=== PATIENT | male | born 1960 | race Two or more races ===

== ENCOUNTER 2023-10-20 22:07 | Inpatient (IN) | payer MEDICARE, OTHER ==
[~2023-10-20] VITALS: Ht 177.8 cm; Wt 84.8 kg
[2023-10-21 00:25] LABS: BASOPHILS # (AUTO) 0.1 K/uL (0.0-0.2); BASOPHILS % (AUTO) 0.8 % (0.0-2.0); EOSINOPHILS # (AUTO) 0.3 K/uL (0.0-0.7); EOSINOPHILS % (AUTO) 2.2 % (0.0-6.0); HEMATOCRIT 29 % (39-51); HEMOGLOBIN 9.5 g/dL (13.5-17.5); LYMPHOCYTES # (AUTO) 2.9 K/uL (0.8-4.8); LYMPHOCYTES % (AUTO) 22.9 % (20.0-44.0); MEAN CORPUSCULAR HEMOGLOBIN 29 PG (26.0-33.0); MEAN CORPUSCULAR HGB CONC 33 g/dl (31.0-36.0); MEAN CORPUSCULAR VOLUME 88 fL (80-96); MONOCYTES # (AUTO) 0.7 K/uL (0.1-1.30); MONOCYTES % (AUTO) 5.6 % (2.0-12.0); NEUTROPHILS # (AUTO) 8.6 K/uL (1.8-8.9); NEUTROPHILS % (AUTO) 68.5 % (43.0-81.0); PLATELET COUNT (AUTO) 599 K/uL (150-450); RED BLOOD CELL COUNT(AUTO) 3.27 MIL/uL (4.5-6.0); RED CELL DISTRIBUTION WIDTH 15.6 % (11.5-15.0); WHITE BLOOD COUNT (AUTO) 12.6 K/uL (4.3-11.0)
[2023-10-21 00:31] LABS: CALCIUM, SERUM 9.1 mg/dL (8.5-10.1); CARBON DIOXIDE 20 mmol/L (21-32); CHLORIDE 108 mmol/L (98-107); CREATININE 1.4 mg/dL (0.6-1.3); GLUCOSE 148 mg/dL (74-106); POTASSIUM 3.8 mmol/L (3.5-5.1); SERUM AMMONIA 41 umol/L (11-32); SODIUM SERUM 139 mmol/L (136-145); UREA NITROGEN, BLOOD 32 mg/dL (7-18)
[2023-10-21 00:37] LABS: ALANINE AMINOTRANSFERASE 18 U/L (12-78); ALCOHOL, BLOOD < 3 mg/dL (0-10); ALKALINE PHOSPHATASE 242 U/L (46-116); ASPARTATE AMINOTRANSFERASE 20 U/L (15-37); BILIRUBIN,DIRECT 0.1 mg/dL (0.0-0.2); BILIRUBIN,TOTAL 0.2 mg/dL (0.2-1.0); SALICYLATE 3.5 mg/dL (2.8-20.0); TOTAL PROTEIN, SERUM 6.9 g/dL (6.4-8.2)
[2023-10-21] MEDS ORDERED: CEFEPIME 1 GM VIAL ONE (00:40)
[2023-10-21 00:44] LABS: INR 1.01 (0.91-1.10); PARTIAL THROMBOPLASTIN TIME 30.4 SEC (24.3-34.3); PROTHROMBIN TIME 10.7 SECS (9.2-11.1)
[2023-10-21 00:45] LABS: ACETAMINOPHEN <10 ug/ml (10-30); THYROID STIMULATING HORMONE 3.858 uIU/mL (0.358-3.74)
[2023-10-21] MEDS ORDERED: CEFEPIME 2 GM in IV D5W 50 ML IV ONE (01:00)
[2023-10-21] MEDS ORDERED: VANCOMYCIN 1 GM in IV D5W 250 ML IV ONE (01:00)
[2023-10-21] MEDS ORDERED: IV NS 0.9% 1,000 ML BAG IV ONE (01:00)
[2023-10-21] MEDS ORDERED: VANCOMYCIN 1 GM /D5W 250 ML PB IV ONE (01:23)
[2023-10-21] MEDS ORDERED: Z GUARD REMEDY 4 OZ OINT TP PRN (02:30)
[2023-10-21] MEDS ORDERED: MAGNESIUM HYDROXIDE 30 ML UDC PO PRN (02:30)
[2023-10-21] MEDS ORDERED: MAG HYDROX/AL HYDROX/SIMETH 30 ML UDC PO PRN (02:30)
[2023-10-21] MEDS ORDERED: ONDANSETRON HCL/PF 4 MG/2 ML VIAL IVP PRN (02:30)
[2023-10-21] MEDS ORDERED: ACETAMINOPHEN 325 MG TABLET PO PRN (02:30)
[2023-10-21] MEDS ORDERED: PANTOPRAZOLE 40 MG VIAL IV SCH (09:00)
[2023-10-21] MEDS ORDERED: OXYC15TA2 PO (09:47)
[2023-10-21] MEDS: HYDROCODONE/APAP 5/325MG TABLET PO PRN (10:21)
[2023-10-21] MEDS ORDERED: VANCOMYCIN 0.75 GM in IV D5W 250 ML IV SCH (12:00)
[2023-10-21] MEDS: MUPIROCIN OINT 2% 22 GM TUBE TP SCH ×2 (12:10→21:38)
[2023-10-21] MEDS: CEFEPIME 2 GM in IV D5W 100 ML IV SCH (12:34)
[2023-10-21] MEDS: PREGABALIN 100 MG CAPSULE PO SCH ×2 (12:35→16:10)
[2023-10-21] MEDS: LINEZOLID 600 MG TABLET PO SCH (16:10)
[2023-10-21] MEDS: oxyCODONE IR immediate release 5 MG PO PRN (20:24)
[2023-10-22] MEDS: CEFEPIME 2 GM in IV D5W 100 ML IV SCH ×2 (01:43→12:44)
[2023-10-22] MEDS: oxyCODONE IR immediate release 5 MG PO PRN ×3 (02:38→18:36)
[2023-10-22 06:26] LABS: BASOPHILS % (AUTO) 0.7 % (0.0-2.0); EOSINOPHILS # (AUTO) 0.2 K/uL (0.0-0.7); EOSINOPHILS % (AUTO) 3.2 % (0.0-6.0); HEMATOCRIT 24 % (39-51); HEMOGLOBIN 8.4 g/dL (13.5-17.5); LYMPHOCYTES # (AUTO) 0.8 K/uL (0.8-4.8); LYMPHOCYTES % (AUTO) 13.7 % (20.0-44.0); MEAN CORPUSCULAR HEMOGLOBIN 31 PG (26.0-33.0); MEAN CORPUSCULAR HGB CONC 35 g/dl (31.0-36.0); MEAN CORPUSCULAR VOLUME 89 fL (80-96); MONOCYTES # (AUTO) 0.4 K/uL (0.1-1.30); MONOCYTES % (AUTO) 7.3 % (2.0-12.0); NEUTROPHILS # (AUTO) 4.5 K/uL (1.8-8.9); NEUTROPHILS % (AUTO) 75.1 % (43.0-81.0); PLATELET COUNT (AUTO) 370 K/uL (150-450); RED BLOOD CELL COUNT(AUTO) 2.66 MIL/uL (4.5-6.0); RED CELL DISTRIBUTION WIDTH 16.3 % (11.5-15.0)
[2023-10-22 07:02] LABS: CALCIUM, SERUM 8.1 mg/dL (8.5-10.1); MAGNESIUM 1.6 mg/dL (1.8-2.4); PHOSPHORUS 2.3 mg/dL (2.5-4.9); POTASSIUM 3.5 mmol/L (3.5-5.1)
[2023-10-22] MEDS: INSULIN REGULAR, HUMAN 100 UNIT/ML 3 ML VIAL SQ PRN ×2 (08:21→10:06)
[2023-10-22] MEDS ORDERED: DEXTROSE 50%-WATER 50 ML DISP.SYRIN IV PRN (08:30)
[2023-10-22] MEDS: PREGABALIN 100 MG CAPSULE PO SCH ×3 (09:07→16:26)
[2023-10-22] MEDS: PANTOPRAZOLE 40 MG TABLET.DR PO SCH (09:07)
[2023-10-22] MEDS: LINEZOLID 600 MG TABLET PO SCH ×2 (09:08→16:26)
[2023-10-22] MEDS: BLOOD SUGAR DIAGNOSTIC 1 EACH STRIP IN SCH ×4 (09:13→21:11)
[2023-10-22] MEDS: DAKINS QUARTER STRENGTH (0.125%) 480 ML BOTTLE TOP SCH (09:58)
[2023-10-22] MEDS ORDERED: MAGNESIUM OXIDE 400 MG TABLET PO ONE (10:00)
[2023-10-22] MEDS ORDERED: INSULIN GLARGINE, 100 UNIT/ML CARTRIDGE SQ ONE (10:00)
[2023-10-22] MEDS ORDERED: INSULIN REGULAR, HUMAN 100 UNIT/ML 10 ML VIAL SQ ONE (10:00)
[2023-10-22] MEDS: MUPIROCIN OINT 2% 22 GM TUBE TP SCH ×2 (10:49→21:50)
[2023-10-22] MEDS ORDERED: K PHOS NEUTRAL 250 MG TABLET PO ONE (16:00)
[2023-10-22 20:00] VITALS: BP 123/76; TEMP 98.1; O2SAT 99
[2023-10-22] MEDS: *INSULIN REGULAR(HUMULIN R)HUM 100 UNIT/ML VIAL SQ PRN (21:16)
[2023-10-22] MEDS: INSULIN GLARGINE, 100 UNIT/ML CARTRIDGE SQ SCH (21:17)
[2023-10-23] MEDS: oxyCODONE IR immediate release 5 MG PO PRN ×4 (00:40→22:32)
[2023-10-23 04:00] VITALS: BP 122/78; TEMP 97.6; O2SAT 99
[2023-10-23 07:27] LABS: BASOPHILS % (AUTO) 0.7 % (0.0-2.0); EOSINOPHILS # (AUTO) 0.3 K/uL (0.0-0.7); EOSINOPHILS % (AUTO) 4.6 % (0.0-6.0); HEMATOCRIT 24 % (39-51); HEMOGLOBIN 8.3 g/dL (13.5-17.5); LYMPHOCYTES # (AUTO) 1.5 K/uL (0.8-4.8); LYMPHOCYTES % (AUTO) 26.3 % (20.0-44.0); MEAN CORPUSCULAR HEMOGLOBIN 30 PG (26.0-33.0); MEAN CORPUSCULAR HGB CONC 34 g/dl (31.0-36.0); MEAN CORPUSCULAR VOLUME 88 fL (80-96); MONOCYTES # (AUTO) 0.5 K/uL (0.1-1.30); MONOCYTES % (AUTO) 8.6 % (2.0-12.0); NEUTROPHILS # (AUTO) 3.5 K/uL (1.8-8.9); NEUTROPHILS % (AUTO) 59.8 % (43.0-81.0); PLATELET COUNT (AUTO) 376 K/uL (150-450); RED BLOOD CELL COUNT(AUTO) 2.74 MIL/uL (4.5-6.0); RED CELL DISTRIBUTION WIDTH 15.8 % (11.5-15.0); WHITE BLOOD COUNT (AUTO) 5.9 K/uL (4.3-11.0)
[2023-10-23 08:00] VITALS: BP 115/76; TEMP 97.9; O2SAT 98
[2023-10-23 08:01] LABS: CALCIUM, SERUM 8.3 mg/dL (8.5-10.1); CREATININE 0.7 mg/dL (0.6-1.3); MAGNESIUM 1.6 mg/dL (1.8-2.4); PHOSPHORUS 2.7 mg/dL (2.5-4.9); POTASSIUM 3.3 mmol/L (3.5-5.1)
[2023-10-23] MEDS: INSULIN REGULAR, HUMAN 100 UNIT/ML 3 ML VIAL SQ PRN ×3 (08:10→17:45)
[2023-10-23] MEDS: BLOOD SUGAR DIAGNOSTIC 1 EACH STRIP IN SCH ×4 (08:11→21:52)
[2023-10-23] MEDS ORDERED: MAGNESIUM OXIDE 400 MG TABLET PO ONE (10:00)
[2023-10-23] MEDS ORDERED: POTASSIUM CHLORIDE 20 MEQ TAB.PRT.SR PO SCH (10:30)
[2023-10-23] MEDS: DAKINS QUARTER STRENGTH (0.125%) 480 ML BOTTLE TOP SCH (10:31)
[2023-10-23] MEDS: LINEZOLID 600 MG TABLET PO SCH ×2 (10:35→17:43)
[2023-10-23] MEDS: PANTOPRAZOLE 40 MG TABLET.DR PO SCH (10:35)
[2023-10-23] MEDS: PREGABALIN 100 MG CAPSULE PO SCH ×3 (10:35→17:43)
[2023-10-23] MEDS: MUPIROCIN OINT 2% 22 GM TUBE TP SCH ×2 (10:41→21:59)
[2023-10-23] MEDS: CEFEPIME 2 GM in IV D5W 100 ML IV SCH ×3 (12:41)
[2023-10-23 16:00] VITALS: BP 125/63; TEMP 97.5; O2SAT 99
[2023-10-23 20:00] VITALS: BP 108/67; TEMP 98.2; O2SAT 99
[2023-10-23] MEDS: *INSULIN REGULAR(HUMULIN R)HUM 100 UNIT/ML VIAL SQ PRN (21:55)
[2023-10-23] MEDS: INSULIN GLARGINE, 100 UNIT/ML CARTRIDGE SQ SCH (21:59)
[2023-10-23] MEDS: ZOLPIDEM TARTRATE 5 MG TABLET PO PRN (22:32)
[2023-10-24] MEDS: CEFEPIME 2 GM in IV D5W 100 ML IV SCH ×2 (01:51→12:31)
[2023-10-24 04:00] VITALS: BP 124/66; TEMP 97.8; O2SAT 100
[2023-10-24] MEDS: oxyCODONE IR immediate release 5 MG PO PRN ×3 (05:27→17:55)
[2023-10-24 06:18] LABS: BASOPHILS % (AUTO) 0.7 % (0.0-2.0); EOSINOPHILS # (AUTO) 0.3 K/uL (0.0-0.7); EOSINOPHILS % (AUTO) 4.8 % (0.0-6.0); HEMATOCRIT 24 % (39-51); HEMOGLOBIN 8.1 g/dL (13.5-17.5); LYMPHOCYTES # (AUTO) 1.7 K/uL (0.8-4.8); LYMPHOCYTES % (AUTO) 29.9 % (20.0-44.0); MEAN CORPUSCULAR HEMOGLOBIN 30 PG (26.0-33.0); MEAN CORPUSCULAR HGB CONC 34 g/dl (31.0-36.0); MEAN CORPUSCULAR VOLUME 89 fL (80-96); MONOCYTES # (AUTO) 0.6 K/uL (0.1-1.30); MONOCYTES % (AUTO) 9.8 % (2.0-12.0); NEUTROPHILS # (AUTO) 3.2 K/uL (1.8-8.9); NEUTROPHILS % (AUTO) 54.8 % (43.0-81.0); PLATELET COUNT (AUTO) 385 K/uL (150-450); RED CELL DISTRIBUTION WIDTH 16.3 % (11.5-15.0); WHITE BLOOD COUNT (AUTO) 5.8 K/uL (4.3-11.0)
[2023-10-24 06:44] LABS: CALCIUM, SERUM 8.5 mg/dL (8.5-10.1); CREATININE 0.9 mg/dL (0.6-1.3); MAGNESIUM 1.6 mg/dL (1.8-2.4); PHOSPHORUS 2.6 mg/dL (2.5-4.9); POTASSIUM 3.7 mmol/L (3.5-5.1)
[2023-10-24 08:00] VITALS: BP 122/79; TEMP 97.8; O2SAT 100
[2023-10-24] MEDS: INSULIN REGULAR, HUMAN 100 UNIT/ML 3 ML VIAL SQ PRN ×2 (08:10→12:04)
[2023-10-24] MEDS: BLOOD SUGAR DIAGNOSTIC 1 EACH STRIP IN SCH ×4 (08:38→21:42)
[2023-10-24] MEDS: PREGABALIN 100 MG CAPSULE PO SCH ×3 (09:04→17:09)
[2023-10-24] MEDS: PANTOPRAZOLE 40 MG TABLET.DR PO SCH (09:04)
[2023-10-24] MEDS: LINEZOLID 600 MG TABLET PO SCH ×2 (09:04→17:09)
[2023-10-24] MEDS: DAKINS QUARTER STRENGTH (0.125%) 480 ML BOTTLE TOP SCH (09:05)
[2023-10-24] MEDS ORDERED: MAGNESIUM OXIDE 400 MG TABLET PO ONE (10:00)
[2023-10-24] MEDS: MUPIROCIN OINT 2% 22 GM TUBE TP SCH ×2 (11:09→22:30)
[2023-10-24 16:00] VITALS: BP 128/76; TEMP 97.7; O2SAT 100
[2023-10-24 20:00] VITALS: BP 124/76; TEMP 98.4; O2SAT 98
[2023-10-24] MEDS ORDERED: IV D5/ 0.9% NACL 1,000 ML IV ONE (20:00)
[2023-10-24] MEDS: *INSULIN REGULAR(HUMULIN R)HUM 100 UNIT/ML VIAL SQ PRN (21:49)
[2023-10-24] MEDS: INSULIN GLARGINE, 100 UNIT/ML CARTRIDGE SQ SCH (21:51)
[2023-10-25] MEDS: HYDROCODONE/APAP 5/325MG TABLET PO PRN (00:14)
[2023-10-25] MEDS: ZOLPIDEM TARTRATE 5 MG TABLET PO PRN (00:14)
[2023-10-25] MEDS: oxyCODONE IR immediate release 5 MG PO PRN ×4 (00:33→20:07)
[2023-10-25] MEDS: CEFEPIME 2 GM in IV D5W 100 ML IV SCH ×2 (00:33→13:30)
[2023-10-25 04:00] VITALS: BP 128/72; TEMP 97.8; O2SAT 99
[2023-10-25 07:04] LABS: BASOPHILS % (AUTO) 0.6 % (0.0-2.0); EOSINOPHILS # (AUTO) 0.3 K/uL (0.0-0.7); EOSINOPHILS % (AUTO) 4.7 % (0.0-6.0); HEMATOCRIT 25 % (39-51); HEMOGLOBIN 8.5 g/dL (13.5-17.5); LYMPHOCYTES # (AUTO) 1.5 K/uL (0.8-4.8); LYMPHOCYTES % (AUTO) 25.1 % (20.0-44.0); MEAN CORPUSCULAR HEMOGLOBIN 30 PG (26.0-33.0); MEAN CORPUSCULAR HGB CONC 34 g/dl (31.0-36.0); MEAN CORPUSCULAR VOLUME 89 fL (80-96); MONOCYTES # (AUTO) 0.6 K/uL (0.1-1.30); NEUTROPHILS # (AUTO) 3.7 K/uL (1.8-8.9); NEUTROPHILS % (AUTO) 60.6 % (43.0-81.0); PLATELET COUNT (AUTO) 407 K/uL (150-450); RED BLOOD CELL COUNT(AUTO) 2.85 MIL/uL (4.5-6.0); RED CELL DISTRIBUTION WIDTH 16.1 % (11.5-15.0); WHITE BLOOD COUNT (AUTO) 6.2 K/uL (4.3-11.0)
[2023-10-25 07:27] LABS: CALCIUM, SERUM 8.6 mg/dL (8.5-10.1); CREATININE 1.1 mg/dL (0.6-1.3); MAGNESIUM 1.7 mg/dL (1.8-2.4); PHOSPHORUS 3.1 mg/dL (2.5-4.9); POTASSIUM 3.9 mmol/L (3.5-5.1)
[2023-10-25] MEDS: INSULIN REGULAR, HUMAN 100 UNIT/ML 3 ML VIAL SQ PRN ×2 (07:58→18:00)
[2023-10-25 08:00] VITALS: BP 124/64; TEMP 98.2; O2SAT 98
[2023-10-25] MEDS: BLOOD SUGAR DIAGNOSTIC 1 EACH STRIP IN SCH ×4 (08:01→22:56)
[2023-10-25] MEDS: PANTOPRAZOLE 40 MG TABLET.DR PO SCH (09:00)
[2023-10-25] MEDS: PREGABALIN 100 MG CAPSULE PO SCH ×3 (09:00→17:16)
[2023-10-25] MEDS: LINEZOLID 600 MG TABLET PO SCH ×2 (09:20→17:16)
[2023-10-25] MEDS: DAKINS QUARTER STRENGTH (0.125%) 480 ML BOTTLE TOP SCH (09:21)
[2023-10-25] MEDS: MUPIROCIN OINT 2% 22 GM TUBE TP SCH ×2 (10:30→22:14)
[2023-10-25] MEDS ORDERED: IOHEXOL-350 100 ML VIAL IV ONE (11:18)
[2023-10-25] MEDS ORDERED: CT SWABBABLE VALVE TRANS SET 1 EA INFUS.SET MC ONE (11:18)
[2023-10-25] MEDS ORDERED: IV NS 0.9% 250 ML IV ONE (11:18)
[2023-10-25 14:00] VITALS: BP 132/72; TEMP 98.7; O2SAT 98
[2023-10-25] MEDS: Magnesium 1GM/D5W 100ML PREMIX 100 ML IV SCH ×2 (14:28→15:44)
[2023-10-25 16:00] VITALS: BP 128/75; TEMP 97.8; O2SAT 98
[2023-10-25 20:00] VITALS: BP 121/73; TEMP 98.4; O2SAT 99
[2023-10-25] MEDS: *INSULIN REGULAR(HUMULIN R)HUM 100 UNIT/ML VIAL SQ PRN (22:05)
[2023-10-25] MEDS: INSULIN GLARGINE, 100 UNIT/ML CARTRIDGE SQ SCH (22:13)
[2023-10-26] MEDS: CEFEPIME 2 GM in IV D5W 100 ML IV SCH ×2 (01:36→12:36)
[2023-10-26] MEDS: oxyCODONE IR immediate release 5 MG PO PRN ×4 (01:59→21:59)
[2023-10-26 04:00] VITALS: BP 149/83; TEMP 98; O2SAT 98
[2023-10-26 06:12] LABS: CALCIUM, SERUM 8.1 mg/dL (8.5-10.1); CREATININE 1.1 mg/dL (0.6-1.3); POTASSIUM 4.3 mmol/L (3.5-5.1)
[2023-10-26] MEDS ORDERED: INSULIN REGULAR, HUMAN 100 UNIT/ML 10 ML VIAL SQ ONE (07:00)
[2023-10-26] MEDS: INSULIN REGULAR, HUMAN 100 UNIT/ML 3 ML VIAL SQ PRN ×2 (07:02→07:35)
[2023-10-26] MEDS: BLOOD SUGAR DIAGNOSTIC 1 EACH STRIP IN SCH ×4 (07:33→21:55)
[2023-10-26] MEDS: HYDROCODONE/APAP 5/325MG TABLET PO PRN (08:11)
[2023-10-26] MEDS: PANTOPRAZOLE 40 MG TABLET.DR PO SCH (08:11)
[2023-10-26] MEDS: PREGABALIN 100 MG CAPSULE PO SCH ×3 (08:11→17:12)
[2023-10-26] MEDS: LINEZOLID 600 MG TABLET PO SCH ×2 (08:11→17:12)
[2023-10-26] MEDS: DAKINS QUARTER STRENGTH (0.125%) 480 ML BOTTLE TOP SCH (08:12)
[2023-10-26 08:58] VITALS: BP 124/64; TEMP 98.2; O2SAT 98
[2023-10-26] MEDS: MUPIROCIN OINT 2% 22 GM TUBE TP SCH ×2 (09:56→22:00)
[2023-10-26 16:21] VITALS: BP 109/64; TEMP 98.2; O2SAT 98
[2023-10-26 20:00] VITALS: BP 128/73; TEMP 97.9; O2SAT 98
[2023-10-26] MEDS: *INSULIN REGULAR(HUMULIN R)HUM 100 UNIT/ML VIAL SQ PRN (21:57)
[2023-10-26] MEDS: INSULIN GLARGINE, 100 UNIT/ML CARTRIDGE SQ SCH (21:58)
[2023-10-26] MEDS: ZOLPIDEM TARTRATE 5 MG TABLET PO PRN (21:59)
[2023-10-27] MEDS: CEFEPIME 2 GM in IV D5W 100 ML IV SCH ×2 (00:44→12:55)
[2023-10-27] MEDS: oxyCODONE IR immediate release 5 MG PO PRN ×4 (03:31→21:44)
[2023-10-27 04:00] VITALS: BP 136/73; TEMP 98.4; O2SAT 99
[2023-10-27 06:10] LABS: CALCIUM, SERUM 8.4 mg/dL (8.5-10.1); POTASSIUM 4.4 mmol/L (3.5-5.1)
[2023-10-27] MEDS: BLOOD SUGAR DIAGNOSTIC 1 EACH STRIP IN SCH ×4 (07:22→21:46)
[2023-10-27] MEDS: INSULIN REGULAR, HUMAN 100 UNIT/ML 3 ML VIAL SQ PRN ×2 (07:23→11:25)
[2023-10-27 08:35] VITALS: BP 132/78; TEMP 98.4; O2SAT 98
[2023-10-27] MEDS: PREGABALIN 100 MG CAPSULE PO SCH ×3 (09:00→16:12)
[2023-10-27] MEDS: LINEZOLID 600 MG TABLET PO SCH ×2 (09:00→16:12)
[2023-10-27] MEDS: PANTOPRAZOLE 40 MG TABLET.DR PO SCH (09:00)
[2023-10-27] MEDS: DAKINS QUARTER STRENGTH (0.125%) 480 ML BOTTLE TOP SCH (09:01)
[2023-10-27 09:09] VITALS: BP 133/83; TEMP 98; O2SAT 98
[2023-10-27] MEDS: MUPIROCIN OINT 2% 22 GM TUBE TP SCH ×2 (09:34→21:53)
[2023-10-27 16:28] VITALS: BP 130/73; TEMP 97.9; O2SAT 98
[2023-10-27 20:00] VITALS: BP 129/69; TEMP 98.4; O2SAT 99
[2023-10-27] MEDS: INSULIN GLARGINE, 100 UNIT/ML CARTRIDGE SQ SCH (21:48)
[2023-10-27] MEDS: *INSULIN REGULAR(HUMULIN R)HUM 100 UNIT/ML VIAL SQ PRN (21:52)
[2023-10-27] MEDS ORDERED: INSULIN REGULAR, HUMAN 100 UNIT/ML 10 ML VIAL SQ ONE (23:00)
[2023-10-28] MEDS: CEFEPIME 2 GM in IV D5W 100 ML IV SCH ×2 (01:24→12:51)
[2023-10-28 04:00] VITALS: BP 104/69; TEMP 98.4; O2SAT 96
[2023-10-28] MEDS: oxyCODONE IR immediate release 5 MG PO PRN ×4 (04:09→22:45)
[2023-10-28] MEDS: BLOOD SUGAR DIAGNOSTIC 1 EACH STRIP IN SCH ×4 (07:22→21:51)
[2023-10-28] MEDS: INSULIN REGULAR, HUMAN 100 UNIT/ML 3 ML VIAL SQ PRN ×3 (07:23→16:33)
[2023-10-28 08:00] VITALS: BP 130/73; TEMP 97.9; O2SAT 98
[2023-10-28] MEDS: PREGABALIN 100 MG CAPSULE PO SCH ×3 (08:47→16:11)
[2023-10-28] MEDS: LINEZOLID 600 MG TABLET PO SCH ×2 (08:47→16:13)
[2023-10-28] MEDS: PANTOPRAZOLE 40 MG TABLET.DR PO SCH (08:47)
[2023-10-28] MEDS: DAKINS QUARTER STRENGTH (0.125%) 480 ML BOTTLE TOP SCH (08:48)
[2023-10-28] MEDS: MUPIROCIN OINT 2% 22 GM TUBE TP SCH ×2 (10:28→21:56)
[2023-10-28 11:39] LABS: BASOPHILS % (AUTO) 0.5 % (0.0-2.0); EOSINOPHILS # (AUTO) 0.3 K/uL (0.0-0.7); HEMATOCRIT 23 % (39-51); HEMOGLOBIN 8.1 g/dL (13.5-17.5); LYMPHOCYTES # (AUTO) 1.5 K/uL (0.8-4.8); LYMPHOCYTES % (AUTO) 21.8 % (20.0-44.0); MEAN CORPUSCULAR HEMOGLOBIN 31 PG (26.0-33.0); MEAN CORPUSCULAR HGB CONC 35 g/dl (31.0-36.0); MEAN CORPUSCULAR VOLUME 87 fL (80-96); MONOCYTES # (AUTO) 0.6 K/uL (0.1-1.30); MONOCYTES % (AUTO) 9.3 % (2.0-12.0); NEUTROPHILS # (AUTO) 4.4 K/uL (1.8-8.9); NEUTROPHILS % (AUTO) 63.4 % (43.0-81.0); PLATELET COUNT (AUTO) 348 K/uL (150-450); RED BLOOD CELL COUNT(AUTO) 2.66 MIL/uL (4.5-6.0); RED CELL DISTRIBUTION WIDTH 15.9 % (11.5-15.0); WHITE BLOOD COUNT (AUTO) 6.9 K/uL (4.3-11.0)
[2023-10-28 11:47] LABS: CALCIUM, SERUM 8.7 mg/dL (8.5-10.1); POTASSIUM 4.4 mmol/L (3.5-5.1)
[2023-10-28 17:02] VITALS: BP 130/73; TEMP 97.9; O2SAT 98
[2023-10-28] MEDS ORDERED: IV NS 0.9% 1,000 ML BAG IV ONE (17:30)
[2023-10-28 20:00] VITALS: BP 109/65; TEMP 98.8; O2SAT 98
[2023-10-28] MEDS: *INSULIN REGULAR(HUMULIN R)HUM 100 UNIT/ML VIAL SQ PRN (21:53)
[2023-10-28] MEDS: INSULIN GLARGINE, 100 UNIT/ML CARTRIDGE SQ SCH (21:55)
[2023-10-29] MEDS ORDERED: IV NS 0.9% 1,000 ML BAG IV ONE
[2023-10-29] MEDS: CEFEPIME 2 GM in IV D5W 100 ML IV SCH ×2 (01:14→15:11)
[2023-10-29 04:00] VITALS: BP 112/73; TEMP 98.6; O2SAT 98
[2023-10-29 07:17] LABS: BASOPHILS # (AUTO) 0.1 K/uL (0.0-0.2); BASOPHILS % (AUTO) 0.9 % (0.0-2.0); EOSINOPHILS # (AUTO) 0.4 K/uL (0.0-0.7); EOSINOPHILS % (AUTO) 6.5 % (0.0-6.0); HEMATOCRIT 24 % (39-51); HEMOGLOBIN 8.3 g/dL (13.5-17.5); LYMPHOCYTES % (AUTO) 31.6 % (20.0-44.0); MEAN CORPUSCULAR HEMOGLOBIN 30 PG (26.0-33.0); MEAN CORPUSCULAR HGB CONC 34 g/dl (31.0-36.0); MEAN CORPUSCULAR VOLUME 88 fL (80-96); MONOCYTES # (AUTO) 0.8 K/uL (0.1-1.30); MONOCYTES % (AUTO) 12.2 % (2.0-12.0); NEUTROPHILS # (AUTO) 3.1 K/uL (1.8-8.9); NEUTROPHILS % (AUTO) 48.8 % (43.0-81.0); PLATELET COUNT (AUTO) 340 K/uL (150-450); RED BLOOD CELL COUNT(AUTO) 2.77 MIL/uL (4.5-6.0); RED CELL DISTRIBUTION WIDTH 15.8 % (11.5-15.0); WHITE BLOOD COUNT (AUTO) 6.4 K/uL (4.3-11.0)
[2023-10-29 07:40] LABS: CREATININE 0.9 mg/dL (0.6-1.3); MAGNESIUM 1.8 mg/dL (1.8-2.4); PHOSPHORUS 2.9 mg/dL (2.5-4.9); POTASSIUM 4.3 mmol/L (3.5-5.1)
[2023-10-29] MEDS: BLOOD SUGAR DIAGNOSTIC 1 EACH STRIP IN SCH ×4 (07:47→22:00)
[2023-10-29 08:00] VITALS: BP 130/89; TEMP 98.6; O2SAT 100
[2023-10-29] MEDS: PANTOPRAZOLE 40 MG TABLET.DR PO SCH (09:00)
[2023-10-29] MEDS: LINEZOLID 600 MG TABLET PO SCH ×2 (09:00→17:19)
[2023-10-29] MEDS: PREGABALIN 100 MG CAPSULE PO SCH ×3 (09:00→17:19)
[2023-10-29] MEDS: DAKINS QUARTER STRENGTH (0.125%) 480 ML BOTTLE TOP SCH (09:28)
[2023-10-29] MEDS: MUPIROCIN OINT 2% 22 GM TUBE TP SCH ×2 (10:52→22:30)
[2023-10-29] MEDS ORDERED: IODIXANOL 150 ML IV ONE (13:39)
[2023-10-29] MEDS ORDERED: IV SET PRIMARY PUMP SET 1 EA INFUS.SET MC ONE (13:40)
[2023-10-29] MEDS ORDERED: IV NS 0.9% 1,000 ML ONE (13:40)
[2023-10-29] MEDS ORDERED: LIDOCAINE HCL/PF 1% 30 ML SDV ONE (13:40)
[2023-10-29] MEDS ORDERED: IV NS 0.9% 1,000 ML IV PRN (15:30)
[2023-10-29 16:00] VITALS: BP 131/83; TEMP 98.8; O2SAT 100
[2023-10-29] MEDS: oxyCODONE IR immediate release 5 MG PO PRN ×2 (16:11→21:41)
[2023-10-29 20:00] VITALS: BP 117/79; TEMP 98.2; O2SAT 99
[2023-10-29] MEDS: INSULIN GLARGINE, 100 UNIT/ML CARTRIDGE SQ SCH (21:16)
[2023-10-29] MEDS: *INSULIN REGULAR(HUMULIN R)HUM 100 UNIT/ML VIAL SQ PRN (21:28)
[2023-10-30] MEDS: CEFEPIME 2 GM in IV D5W 100 ML IV SCH ×2 (01:31→12:34)
[2023-10-30 04:00] VITALS: BP 123/78; TEMP 98.5; O2SAT 99
[2023-10-30] MEDS: oxyCODONE IR immediate release 5 MG PO PRN ×4 (05:06→23:59)
[2023-10-30] MEDS: BLOOD SUGAR DIAGNOSTIC 1 EACH STRIP IN SCH ×4 (07:53→22:00)
[2023-10-30 08:00] VITALS: BP 116/63; TEMP 98.2; O2SAT 97
[2023-10-30] MEDS: INSULIN REGULAR, HUMAN 100 UNIT/ML 3 ML VIAL SQ PRN ×3 (08:28→18:35)
[2023-10-30] MEDS: DAKINS QUARTER STRENGTH (0.125%) 480 ML BOTTLE TOP SCH (08:40)
[2023-10-30] MEDS: PANTOPRAZOLE 40 MG TABLET.DR PO SCH (08:50)
[2023-10-30] MEDS: PREGABALIN 100 MG CAPSULE PO SCH ×3 (08:50→16:25)
[2023-10-30] MEDS: LINEZOLID 600 MG TABLET PO SCH ×2 (08:50→16:25)
[2023-10-30] MEDS: MUPIROCIN OINT 2% 22 GM TUBE TP SCH ×2 (14:49→23:24)
[2023-10-30 16:00] VITALS: BP 95/70; TEMP 97.9; O2SAT 97
[2023-10-30] MEDS ORDERED: oxyCODONE IR immediate release 5 MG PO PRN (16:30)
[2023-10-30 20:00] VITALS: BP 116/80; TEMP 97.9; O2SAT 100
[2023-10-30] MEDS: HYDROCODONE/APAP 5/325MG TABLET PO PRN (23:46)
[2023-10-31] MEDS: INSULIN GLARGINE, 100 UNIT/ML CARTRIDGE SQ SCH ×2 (00:33→22:02)
[2023-10-31] MEDS: *INSULIN REGULAR(HUMULIN R)HUM 100 UNIT/ML VIAL SQ PRN (00:48)
[2023-10-31] MEDS: HYDROCODONE/APAP 5/325MG TABLET PO PRN (00:58)
[2023-10-31] MEDS: CEFEPIME 2 GM in IV D5W 100 ML IV SCH ×2 (01:04→13:20)
[2023-10-31 04:00] VITALS: BP 129/77; TEMP 98.3; O2SAT 100
[2023-10-31] MEDS: BLOOD SUGAR DIAGNOSTIC 1 EACH STRIP IN SCH ×4 (06:17→22:00)
[2023-10-31 06:41] LABS: BASOPHILS % (AUTO) 0.8 % (0.0-2.0); EOSINOPHILS # (AUTO) 0.3 K/uL (0.0-0.7); EOSINOPHILS % (AUTO) 5.3 % (0.0-6.0); HEMATOCRIT 24 % (39-51); HEMOGLOBIN 8.3 g/dL (13.5-17.5); LYMPHOCYTES # (AUTO) 2.1 K/uL (0.8-4.8); LYMPHOCYTES % (AUTO) 35.5 % (20.0-44.0); MEAN CORPUSCULAR HEMOGLOBIN 30 PG (26.0-33.0); MEAN CORPUSCULAR HGB CONC 35 g/dl (31.0-36.0); MEAN CORPUSCULAR VOLUME 88 fL (80-96); MONOCYTES # (AUTO) 0.7 K/uL (0.1-1.30); MONOCYTES % (AUTO) 12.6 % (2.0-12.0); NEUTROPHILS # (AUTO) 2.7 K/uL (1.8-8.9); NEUTROPHILS % (AUTO) 45.8 % (43.0-81.0); PLATELET COUNT (AUTO) 296 K/uL (150-450); RED BLOOD CELL COUNT(AUTO) 2.74 MIL/uL (4.5-6.0); RED CELL DISTRIBUTION WIDTH 15.4 % (11.5-15.0); WHITE BLOOD COUNT (AUTO) 5.8 K/uL (4.3-11.0)
[2023-10-31 07:05] LABS: CALCIUM, SERUM 8.9 mg/dL (8.5-10.1); CREATININE 0.9 mg/dL (0.6-1.3); PHOSPHORUS 2.8 mg/dL (2.5-4.9)
[2023-10-31 08:00] VITALS: BP 95/72; TEMP 98.5; O2SAT 100
[2023-10-31] MEDS: LINEZOLID 600 MG TABLET PO SCH ×2 (09:00→16:53)
[2023-10-31] MEDS: DAKINS QUARTER STRENGTH (0.125%) 480 ML BOTTLE TOP SCH (09:00)
[2023-10-31] MEDS: PREGABALIN 100 MG CAPSULE PO SCH ×3 (09:00→16:53)
[2023-10-31] MEDS: PANTOPRAZOLE 40 MG TABLET.DR PO SCH (09:00)
[2023-10-31] MEDS: MUPIROCIN OINT 2% 22 GM TUBE TP SCH ×2 (10:40→22:09)
[2023-10-31] MEDS: oxyCODONE IR immediate release 5 MG PO PRN ×3 (11:58→20:55)
[2023-10-31 12:00] VITALS: BP 117/84; TEMP 98.7; O2SAT 99
[2023-10-31 16:00] VITALS: BP 112/72; TEMP 97.3; O2SAT 98
[2023-10-31] MEDS: INSULIN REGULAR, HUMAN 100 UNIT/ML 3 ML VIAL SQ PRN (17:36)
[2023-10-31 20:00] VITALS: BP 105/63; TEMP 98.1; O2SAT 0
[2023-11-01] MEDS: CEFEPIME 2 GM in IV D5W 100 ML IV SCH ×2 (00:46→13:20)
[2023-11-01] MEDS: oxyCODONE IR immediate release 5 MG PO PRN ×6 (01:01→22:28)
[2023-11-01 04:00] VITALS: BP 111/80; TEMP 98.2; O2SAT 100
[2023-11-01 05:44] VITALS: BP 111/80; TEMP 98.2; O2SAT 100
[2023-11-01 07:42] LABS: BASOPHILS % (AUTO) 0.7 % (0.0-2.0); EOSINOPHILS # (AUTO) 0.3 K/uL (0.0-0.7); EOSINOPHILS % (AUTO) 5.8 % (0.0-6.0); HEMATOCRIT 23 % (39-51); HEMOGLOBIN 7.8 g/dL (13.5-17.5); LYMPHOCYTES # (AUTO) 2.3 K/uL (0.8-4.8); LYMPHOCYTES % (AUTO) 37.7 % (20.0-44.0); MEAN CORPUSCULAR HEMOGLOBIN 30 PG (26.0-33.0); MEAN CORPUSCULAR HGB CONC 34 g/dl (31.0-36.0); MEAN CORPUSCULAR VOLUME 89 fL (80-96); MONOCYTES # (AUTO) 0.7 K/uL (0.1-1.30); MONOCYTES % (AUTO) 11.4 % (2.0-12.0); NEUTROPHILS # (AUTO) 2.7 K/uL (1.8-8.9); NEUTROPHILS % (AUTO) 44.4 % (43.0-81.0); PLATELET COUNT (AUTO) 273 K/uL (150-450); RED BLOOD CELL COUNT(AUTO) 2.58 MIL/uL (4.5-6.0); RED CELL DISTRIBUTION WIDTH 15.4 % (11.5-15.0)
[2023-11-01] MEDS: BLOOD SUGAR DIAGNOSTIC 1 EACH STRIP IN SCH ×4 (07:51→21:34)
[2023-11-01 08:00] VITALS: BP 124/72; TEMP 97.8; O2SAT 100
[2023-11-01 08:01] LABS: CALCIUM, SERUM 8.6 mg/dL (8.5-10.1); CREATININE 0.9 mg/dL (0.6-1.3); PHOSPHORUS 3.6 mg/dL (2.5-4.9); POTASSIUM 4.1 mmol/L (3.5-5.1)
[2023-11-01] MEDS: LINEZOLID 600 MG TABLET PO SCH ×2 (09:36→17:27)
[2023-11-01] MEDS: PREGABALIN 100 MG CAPSULE PO SCH ×3 (09:36→17:27)
[2023-11-01] MEDS: PANTOPRAZOLE 40 MG TABLET.DR PO SCH (09:39)
[2023-11-01] MEDS: DAKINS QUARTER STRENGTH (0.125%) 480 ML BOTTLE TOP SCH (09:39)
[2023-11-01] MEDS: MUPIROCIN OINT 2% 22 GM TUBE TP SCH ×2 (11:26→22:11)
[2023-11-01] MEDS: INSULIN REGULAR, HUMAN 100 UNIT/ML 3 ML VIAL SQ PRN (12:36)
[2023-11-01 16:00] VITALS: BP 118/69; TEMP 97.5; O2SAT 98
[2023-11-01 18:00] VITALS: BP 118/69; TEMP 97.5; O2SAT 98
[2023-11-01 20:00] VITALS: BP 92/62; TEMP 98; O2SAT 100
[2023-11-01] MEDS: INSULIN GLARGINE, 100 UNIT/ML CARTRIDGE SQ SCH (21:35)
[2023-11-01] MEDS: *INSULIN REGULAR(HUMULIN R)HUM 100 UNIT/ML VIAL SQ PRN (21:37)
[2023-11-02] MEDS: CEFEPIME 2 GM in IV D5W 100 ML IV SCH ×2 (01:21→12:12)
[2023-11-02] MEDS: oxyCODONE IR immediate release 5 MG PO PRN ×4 (02:45→18:34)
[2023-11-02 04:55] VITALS: BP 99/63; TEMP 98.6; O2SAT 100
[2023-11-02 06:49] LABS: BASOPHILS % (AUTO) 0.7 % (0.0-2.0); EOSINOPHILS # (AUTO) 0.3 K/uL (0.0-0.7); EOSINOPHILS % (AUTO) 5.5 % (0.0-6.0); HEMATOCRIT 22 % (39-51); HEMOGLOBIN 7.3 g/dL (13.5-17.5); LYMPHOCYTES % (AUTO) 33.1 % (20.0-44.0); MEAN CORPUSCULAR HEMOGLOBIN 30 PG (26.0-33.0); MEAN CORPUSCULAR HGB CONC 34 g/dl (31.0-36.0); MEAN CORPUSCULAR VOLUME 90 fL (80-96); MONOCYTES # (AUTO) 0.6 K/uL (0.1-1.30); MONOCYTES % (AUTO) 9.6 % (2.0-12.0); NEUTROPHILS # (AUTO) 3.1 K/uL (1.8-8.9); NEUTROPHILS % (AUTO) 51.1 % (43.0-81.0); PLATELET COUNT (AUTO) 259 K/uL (150-450); RED BLOOD CELL COUNT(AUTO) 2.43 MIL/uL (4.5-6.0); WHITE BLOOD COUNT (AUTO) 6.1 K/uL (4.3-11.0)
[2023-11-02] MEDS: BLOOD SUGAR DIAGNOSTIC 1 EACH STRIP IN SCH ×4 (07:12→22:41)
[2023-11-02] MEDS: INSULIN REGULAR, HUMAN 100 UNIT/ML 3 ML VIAL SQ PRN ×3 (07:13→17:33)
[2023-11-02 07:23] LABS: CALCIUM, SERUM 8.3 mg/dL (8.5-10.1); CREATININE 1.2 mg/dL (0.6-1.3); MAGNESIUM 2.2 mg/dL (1.8-2.4); PHOSPHORUS 3.9 mg/dL (2.5-4.9); POTASSIUM 4.6 mmol/L (3.5-5.1)
[2023-11-02 08:00] VITALS: BP 110/86; TEMP 97.9; O2SAT 99
[2023-11-02] MEDS: PANTOPRAZOLE 40 MG TABLET.DR PO SCH (08:19)
[2023-11-02] MEDS: PREGABALIN 100 MG CAPSULE PO SCH ×3 (08:19→16:29)
[2023-11-02] MEDS: LINEZOLID 600 MG TABLET PO SCH ×2 (08:19→16:29)
[2023-11-02] MEDS: DAKINS QUARTER STRENGTH (0.125%) 480 ML BOTTLE TOP SCH (08:58)
[2023-11-02] MEDS: MUPIROCIN OINT 2% 22 GM TUBE TP SCH ×2 (11:12→22:41)
[2023-11-02 16:00] VITALS: BP 122/74; TEMP 97.8; O2SAT 99
[2023-11-02 20:00] VITALS: BP 95/61; TEMP 98.8; O2SAT 97; O2SAT 99
[2023-11-02] MEDS: *INSULIN REGULAR(HUMULIN R)HUM 100 UNIT/ML VIAL SQ PRN (22:44)
[2023-11-02] MEDS: INSULIN GLARGINE, 100 UNIT/ML CARTRIDGE SQ SCH (22:46)
[2023-11-03] MEDS: CEFEPIME 2 GM in IV D5W 100 ML IV SCH ×2 (00:59→12:56)
[2023-11-03 04:00] VITALS: BP 119/59; TEMP 98.3; O2SAT 99
[2023-11-03] MEDS: oxyCODONE IR immediate release 5 MG PO PRN ×4 (06:39→20:39)
[2023-11-03] MEDS: BLOOD SUGAR DIAGNOSTIC 1 EACH STRIP IN SCH ×4 (08:22→21:47)
[2023-11-03] MEDS: LINEZOLID 600 MG TABLET PO SCH ×2 (09:14→17:13)
[2023-11-03] MEDS: DAKINS QUARTER STRENGTH (0.125%) 480 ML BOTTLE TOP SCH (09:14)
[2023-11-03] MEDS: PREGABALIN 100 MG CAPSULE PO SCH ×3 (09:15→17:13)
[2023-11-03] MEDS: PANTOPRAZOLE 40 MG TABLET.DR PO SCH (09:17)
[2023-11-03] MEDS: MUPIROCIN OINT 2% 22 GM TUBE TP SCH ×2 (09:18→21:50)
[2023-11-03 10:00] VITALS: BP 107/78; TEMP 97.7; O2SAT 100
[2023-11-03] MEDS: INSULIN REGULAR, HUMAN 100 UNIT/ML 3 ML VIAL SQ PRN (12:42)
[2023-11-03 16:00] VITALS: BP 105/80; TEMP 98.2; O2SAT 100
[2023-11-03 20:00] VITALS: BP 104/53; TEMP 97.8; O2SAT 100
[2023-11-03] MEDS: INSULIN GLARGINE, 100 UNIT/ML CARTRIDGE SQ SCH (21:49)
[2023-11-03] MEDS: *INSULIN REGULAR(HUMULIN R)HUM 100 UNIT/ML VIAL SQ PRN (21:50)
[2023-11-04] MEDS: oxyCODONE IR immediate release 5 MG PO PRN ×6 (00:36→23:52)
[2023-11-04] MEDS: CEFEPIME 2 GM in IV D5W 100 ML IV SCH ×2 (02:02→12:23)
[2023-11-04 04:00] VITALS: BP 121/72; TEMP 97.8; O2SAT 100
[2023-11-04] MEDS ORDERED: IV NS 0.9% 1,000 ML BAG IV PRN (06:00)
[2023-11-04] MEDS ORDERED: IV NS 0.9% 1,000 ML IV SCH (06:00)
[2023-11-04 07:48] LABS: BASOPHILS % (AUTO) 0.8 % (0.0-2.0); EOSINOPHILS # (AUTO) 0.4 K/uL (0.0-0.7); EOSINOPHILS % (AUTO) 6.8 % (0.0-6.0); HEMATOCRIT 23 % (39-51); HEMOGLOBIN 7.7 g/dL (13.5-17.5); LYMPHOCYTES # (AUTO) 1.9 K/uL (0.8-4.8); LYMPHOCYTES % (AUTO) 35.8 % (20.0-44.0); MEAN CORPUSCULAR HEMOGLOBIN 30 PG (26.0-33.0); MEAN CORPUSCULAR HGB CONC 33 g/dl (31.0-36.0); MEAN CORPUSCULAR VOLUME 90 fL (80-96); MONOCYTES # (AUTO) 0.5 K/uL (0.1-1.30); MONOCYTES % (AUTO) 10.1 % (2.0-12.0); NEUTROPHILS # (AUTO) 2.5 K/uL (1.8-8.9); NEUTROPHILS % (AUTO) 46.5 % (43.0-81.0); PLATELET COUNT (AUTO) 210 K/uL (150-450); RED BLOOD CELL COUNT(AUTO) 2.58 MIL/uL (4.5-6.0); RED CELL DISTRIBUTION WIDTH 15.9 % (11.5-15.0); WHITE BLOOD COUNT (AUTO) 5.3 K/uL (4.3-11.0)
[2023-11-04] MEDS: INSULIN REGULAR, HUMAN 100 UNIT/ML 3 ML VIAL SQ PRN ×2 (07:57→17:02)
[2023-11-04] MEDS: BLOOD SUGAR DIAGNOSTIC 1 EACH STRIP IN SCH ×4 (07:58→22:00)
[2023-11-04 08:08] LABS: CALCIUM, SERUM 8.8 mg/dL (8.5-10.1); CREATININE 1.2 mg/dL (0.6-1.3); MAGNESIUM 2.1 mg/dL (1.8-2.4); PHOSPHORUS 3.3 mg/dL (2.5-4.9); POTASSIUM 4.6 mmol/L (3.5-5.1)
[2023-11-04 08:11] LABS: INR 0.96 (0.91-1.10); PROTHROMBIN TIME 10.2 SECS (9.2-11.1)
[2023-11-04] MEDS: PANTOPRAZOLE 40 MG TABLET.DR PO SCH (08:16)
[2023-11-04] MEDS: PREGABALIN 100 MG CAPSULE PO SCH ×3 (08:16→16:24)
[2023-11-04] MEDS: LINEZOLID 600 MG TABLET PO SCH ×2 (08:16→16:24)
[2023-11-04] MEDS: DAKINS QUARTER STRENGTH (0.125%) 480 ML BOTTLE TOP SCH (08:16)
[2023-11-04 08:31] VITALS: BP 108/68; TEMP 98.3; O2SAT 99
[2023-11-04] MEDS: MUPIROCIN OINT 2% 22 GM TUBE TP SCH ×2 (09:36→22:30)
[2023-11-04] MEDS ORDERED: LIDOCAINE HCL/MPF 1% 30 ML VIAL IJ ONE (11:57)
[2023-11-04] MEDS ORDERED: GELATIN SPONGE,ABSORBABLE 1 EA SPONGE TP ONE (11:57)
[2023-11-04] MEDS ORDERED: HEMOSTATIC MATRIX 8 ML 1 EACH PAD MC ONE (12:39)
[2023-11-04] MEDS ORDERED: ALBUMIN 5% 250 ML IV ONE (13:16)
[2023-11-04] MEDS ORDERED: Magnesium 1 GM/2 ML VIAL ONE (13:17)
[2023-11-04] MEDS ORDERED: FAMOTIDINE/PF INJ 20 MG/2 ML VIAL IV ONE (13:17)
[2023-11-04] MEDS ORDERED: FENTANYL PF 100MCG/2ML AMPUL ONE (13:17)
[2023-11-04] MEDS ORDERED: MIDAZOLAM HCL 2 MG/2ML VIAL ONE (13:17)
[2023-11-04] MEDS ORDERED: ROCURONIUM BROMIDE 50 MG/5 ML ONE (13:17)
[2023-11-04] MEDS ORDERED: ANESTHESIA TRAY IN PYXIS 1 EA TRAY MC ONE (13:17)
[2023-11-04 16:08] VITALS: BP 114/68; TEMP 97.8; O2SAT 99
[2023-11-04 20:00] VITALS: BP 109/62; TEMP 98.1; O2SAT 99
[2023-11-04] MEDS: INSULIN GLARGINE, 100 UNIT/ML CARTRIDGE SQ SCH (23:57)
[2023-11-05] MEDS: CEFEPIME 2 GM in IV D5W 100 ML IV SCH ×2 (02:50→12:21)
[2023-11-05 04:00] VITALS: BP 130/68; TEMP 98.2; O2SAT 98
[2023-11-05] MEDS: oxyCODONE IR immediate release 5 MG PO PRN ×5 (04:13→20:43)
[2023-11-05 06:40] LABS: BASOPHILS % (AUTO) 0.9 % (0.0-2.0); EOSINOPHILS # (AUTO) 0.3 K/uL (0.0-0.7); EOSINOPHILS % (AUTO) 7.1 % (0.0-6.0); HEMATOCRIT 22 % (39-51); HEMOGLOBIN 7.4 g/dL (13.5-17.5); LYMPHOCYTES # (AUTO) 1.7 K/uL (0.8-4.8); LYMPHOCYTES % (AUTO) 36.8 % (20.0-44.0); MEAN CORPUSCULAR HEMOGLOBIN 30 PG (26.0-33.0); MEAN CORPUSCULAR HGB CONC 33 g/dl (31.0-36.0); MEAN CORPUSCULAR VOLUME 90 fL (80-96); MONOCYTES # (AUTO) 0.4 K/uL (0.1-1.30); MONOCYTES % (AUTO) 8.7 % (2.0-12.0); NEUTROPHILS # (AUTO) 2.2 K/uL (1.8-8.9); NEUTROPHILS % (AUTO) 46.5 % (43.0-81.0); PLATELET COUNT (AUTO) 191 K/uL (150-450); RED BLOOD CELL COUNT(AUTO) 2.47 MIL/uL (4.5-6.0); RED CELL DISTRIBUTION WIDTH 16.1 % (11.5-15.0); WHITE BLOOD COUNT (AUTO) 4.7 K/uL (4.3-11.0)
[2023-11-05 07:05] LABS: CALCIUM, SERUM 8.5 mg/dL (8.5-10.1); CREATININE 1.1 mg/dL (0.6-1.3); PHOSPHORUS 3.6 mg/dL (2.5-4.9); POTASSIUM 4.9 mmol/L (3.5-5.1)
[2023-11-05 08:00] VITALS: BP 104/74; TEMP 98.8; O2SAT 99
[2023-11-05] MEDS: BLOOD SUGAR DIAGNOSTIC 1 EACH STRIP IN SCH ×4 (08:08→21:34)
[2023-11-05] MEDS: LINEZOLID 600 MG TABLET PO SCH ×2 (08:15→16:32)
[2023-11-05] MEDS: PANTOPRAZOLE 40 MG TABLET.DR PO SCH (08:15)
[2023-11-05] MEDS: INSULIN REGULAR, HUMAN 100 UNIT/ML 3 ML VIAL SQ PRN ×2 (08:16→17:34)
[2023-11-05] MEDS: DAKINS QUARTER STRENGTH (0.125%) 480 ML BOTTLE TOP SCH (08:26)
[2023-11-05] MEDS: PREGABALIN 100 MG CAPSULE PO SCH ×3 (09:17→17:33)
[2023-11-05 09:19] LABS: IRON, SERUM 25 ug/dl (50-175); TOTAL IRON BINDING CAPACITY 387 ug/dl (250-450)
[2023-11-05] MEDS: MUPIROCIN OINT 2% 22 GM TUBE TP SCH ×2 (09:32→23:02)
[2023-11-05 16:00] VITALS: BP 138/82; TEMP 97.9; O2SAT 100
[2023-11-05 18:31] LABS: OCCULT BLOOD STOOL NEGATIVE (NEGATIVE)
[2023-11-05 20:00] VITALS: BP 130/87; TEMP 97.7; O2SAT 100
[2023-11-05] MEDS: *INSULIN REGULAR(HUMULIN R)HUM 100 UNIT/ML VIAL SQ PRN (21:36)
[2023-11-05] MEDS: INSULIN GLARGINE, 100 UNIT/ML CARTRIDGE SQ SCH (21:38)
[2023-11-06] VITALS: BP_SYST 112; BP_SYST 54; BP_DIAS 54; BP_DIAS 87; TEMP 98; O2SAT 99
[2023-11-06] MEDS: CEFEPIME 2 GM in IV D5W 100 ML IV SCH ×2 (00:36→12:18)
[2023-11-06] MEDS: oxyCODONE IR immediate release 5 MG PO PRN ×5 (00:40→20:43)
[2023-11-06 04:10] VITALS: BP 105/75; TEMP 97.7; O2SAT 99
[2023-11-06 06:52] LABS: BASOPHILS % (AUTO) 0.5 % (0.0-2.0); EOSINOPHILS # (AUTO) 0.3 K/uL (0.0-0.7); EOSINOPHILS % (AUTO) 7.9 % (0.0-6.0); HEMATOCRIT 24 % (39-51); HEMOGLOBIN 7.7 g/dL (13.5-17.5); LYMPHOCYTES # (AUTO) 1.8 K/uL (0.8-4.8); LYMPHOCYTES % (AUTO) 41.3 % (20.0-44.0); MEAN CORPUSCULAR HEMOGLOBIN 30 PG (26.0-33.0); MEAN CORPUSCULAR HGB CONC 33 g/dl (31.0-36.0); MEAN CORPUSCULAR VOLUME 91 fL (80-96); MONOCYTES # (AUTO) 0.4 K/uL (0.1-1.30); MONOCYTES % (AUTO) 8.5 % (2.0-12.0); NEUTROPHILS # (AUTO) 1.8 K/uL (1.8-8.9); NEUTROPHILS % (AUTO) 41.8 % (43.0-81.0); PLATELET COUNT (AUTO) 190 K/uL (150-450); RED BLOOD CELL COUNT(AUTO) 2.59 MIL/uL (4.5-6.0); RED CELL DISTRIBUTION WIDTH 16.3 % (11.5-15.0); WHITE BLOOD COUNT (AUTO) 4.3 K/uL (4.3-11.0)
[2023-11-06 07:16] LABS: CALCIUM, SERUM 8.7 mg/dL (8.5-10.1); CREATININE 1.2 mg/dL (0.6-1.3); MAGNESIUM 2.1 mg/dL (1.8-2.4); PHOSPHORUS 3.3 mg/dL (2.5-4.9)
[2023-11-06] MEDS: BLOOD SUGAR DIAGNOSTIC 1 EACH STRIP IN SCH ×4 (07:53→21:43)
[2023-11-06] MEDS: INSULIN REGULAR, HUMAN 100 UNIT/ML 3 ML VIAL SQ PRN ×3 (07:57→16:55)
[2023-11-06] MEDS: LINEZOLID 600 MG TABLET PO SCH ×2 (08:06→16:29)
[2023-11-06] MEDS: PREGABALIN 100 MG CAPSULE PO SCH ×3 (08:06→16:29)
[2023-11-06] MEDS: PANTOPRAZOLE 40 MG TABLET.DR PO SCH (08:06)
[2023-11-06] MEDS: DAKINS QUARTER STRENGTH (0.125%) 480 ML BOTTLE TOP SCH (08:08)
[2023-11-06 09:57] VITALS: BP 105/52; TEMP 98.3; O2SAT 99
[2023-11-06] MEDS: MUPIROCIN OINT 2% 22 GM TUBE TP SCH ×2 (11:50→22:04)
[2023-11-06] MEDS: SOD FERRIC GLUC 125 MG in IV NS 0.9% 100 ML IV SCH (15:51)
[2023-11-06 16:00] VITALS: BP 112/73; TEMP 98.1; O2SAT 96
[2023-11-06 20:00] VITALS: BP 128/66; TEMP 98.3; O2SAT 100
[2023-11-06] MEDS: *INSULIN REGULAR(HUMULIN R)HUM 100 UNIT/ML VIAL SQ PRN (21:58)
[2023-11-06] MEDS: INSULIN GLARGINE, 100 UNIT/ML CARTRIDGE SQ SCH (21:58)
[2023-11-07] MEDS: CEFEPIME 2 GM in IV D5W 100 ML IV SCH ×2 (01:20→12:48)
[2023-11-07] MEDS: oxyCODONE IR immediate release 5 MG PO PRN ×5 (01:28→20:59)
[2023-11-07 04:00] VITALS: BP 121/71; TEMP 98.2; O2SAT 100
[2023-11-07 06:31] LABS: BASOPHILS % (AUTO) 0.7 % (0.0-2.0); EOSINOPHILS # (AUTO) 0.4 K/uL (0.0-0.7); EOSINOPHILS % (AUTO) 9.8 % (0.0-6.0); HEMATOCRIT 25 % (39-51); HEMOGLOBIN 8.1 g/dL (13.5-17.5); LYMPHOCYTES # (AUTO) 1.5 K/uL (0.8-4.8); LYMPHOCYTES % (AUTO) 40.6 % (20.0-44.0); MEAN CORPUSCULAR HEMOGLOBIN 30 PG (26.0-33.0); MEAN CORPUSCULAR HGB CONC 32 g/dl (31.0-36.0); MEAN CORPUSCULAR VOLUME 92 fL (80-96); MONOCYTES # (AUTO) 0.3 K/uL (0.1-1.30); MONOCYTES % (AUTO) 8.7 % (2.0-12.0); NEUTROPHILS # (AUTO) 1.5 K/uL (1.8-8.9); NEUTROPHILS % (AUTO) 40.2 % (43.0-81.0); PLATELET COUNT (AUTO) 167 K/uL (150-450); RED CELL DISTRIBUTION WIDTH 16.8 % (11.5-15.0); WHITE BLOOD COUNT (AUTO) 3.7 K/uL (4.3-11.0)
[2023-11-07 07:11] LABS: CALCIUM, SERUM 8.9 mg/dL (8.5-10.1); CREATININE 1.2 mg/dL (0.6-1.3); POTASSIUM 4.8 mmol/L (3.5-5.1)
[2023-11-07] MEDS: INSULIN REGULAR, HUMAN 100 UNIT/ML 3 ML VIAL SQ PRN ×3 (07:43→17:06)
[2023-11-07] MEDS: BLOOD SUGAR DIAGNOSTIC 1 EACH STRIP IN SCH ×4 (07:44→22:06)
[2023-11-07 08:00] VITALS: BP 126/74; TEMP 98.2; O2SAT 97
[2023-11-07] MEDS: PREGABALIN 100 MG CAPSULE PO SCH ×4 (12:35→16:55)
[2023-11-07] MEDS: LINEZOLID 600 MG TABLET PO SCH ×2 (12:35→17:05)
[2023-11-07] MEDS: PANTOPRAZOLE 40 MG TABLET.DR PO SCH (12:35)
[2023-11-07] MEDS: MUPIROCIN OINT 2% 22 GM TUBE TP SCH ×2 (12:36→23:03)
[2023-11-07] MEDS: DAKINS QUARTER STRENGTH (0.125%) 480 ML BOTTLE TOP SCH (12:36)
[2023-11-07] MEDS: SOD FERRIC GLUC 125 MG in IV NS 0.9% 100 ML IV SCH (15:41)
[2023-11-07 16:00] VITALS: BP_SYST 114; BP_SYST 116; BP_DIAS 72; BP_DIAS 76; TEMP 97.8; TEMP 98; O2SAT 98
[2023-11-07 20:00] VITALS: BP 102/57; TEMP 98.8; O2SAT 99
[2023-11-07] MEDS: INSULIN GLARGINE, 100 UNIT/ML CARTRIDGE SQ SCH (22:00)
[2023-11-08] MEDS: oxyCODONE IR immediate release 5 MG PO PRN ×6 (01:02→21:57)
[2023-11-08] MEDS: CEFEPIME 2 GM in IV D5W 100 ML IV SCH ×2 (01:06→12:59)
[2023-11-08 04:00] VITALS: BP 117/57; TEMP 98.8; O2SAT 98
[2023-11-08 06:48] LABS: BASOPHILS % (AUTO) 0.5 % (0.0-2.0); EOSINOPHILS # (AUTO) 0.4 K/uL (0.0-0.7); EOSINOPHILS % (AUTO) 9.3 % (0.0-6.0); HEMATOCRIT 24 % (39-51); HEMOGLOBIN 8.2 g/dL (13.5-17.5); LYMPHOCYTES # (AUTO) 1.6 K/uL (0.8-4.8); LYMPHOCYTES % (AUTO) 37.2 % (20.0-44.0); MEAN CORPUSCULAR HEMOGLOBIN 31 PG (26.0-33.0); MEAN CORPUSCULAR HGB CONC 34 g/dl (31.0-36.0); MEAN CORPUSCULAR VOLUME 92 fL (80-96); MONOCYTES # (AUTO) 0.4 K/uL (0.1-1.30); NEUTROPHILS # (AUTO) 1.9 K/uL (1.8-8.9); PLATELET COUNT (AUTO) 173 K/uL (150-450); RED BLOOD CELL COUNT(AUTO) 2.61 MIL/uL (4.5-6.0); RED CELL DISTRIBUTION WIDTH 16.6 % (11.5-15.0); WHITE BLOOD COUNT (AUTO) 4.3 K/uL (4.3-11.0)
[2023-11-08 07:17] LABS: ALBUMIN 2.9 g/dL (3.4-5.0); BILIRUBIN,TOTAL 0.1 mg/dL (0.2-1.0); CALCIUM, SERUM 8.7 mg/dL (8.5-10.1); CREATININE 1.2 mg/dL (0.6-1.3); POTASSIUM 4.6 mmol/L (3.5-5.1); TOTAL PROTEIN, SERUM 6.8 g/dL (6.4-8.2)
[2023-11-08 08:00] VITALS: BP 104/62; TEMP 98; O2SAT 99
[2023-11-08] MEDS: INSULIN REGULAR, HUMAN 100 UNIT/ML 3 ML VIAL SQ PRN ×2 (08:24→17:52)
[2023-11-08] MEDS: BLOOD SUGAR DIAGNOSTIC 1 EACH STRIP IN SCH ×4 (08:25→18:34)
[2023-11-08] MEDS: DAKINS QUARTER STRENGTH (0.125%) 480 ML BOTTLE TOP SCH (09:00)
[2023-11-08] MEDS: PANTOPRAZOLE 40 MG TABLET.DR PO SCH (09:29)
[2023-11-08] MEDS: LINEZOLID 600 MG TABLET PO SCH ×2 (09:31→17:17)
[2023-11-08] MEDS: PREGABALIN 100 MG CAPSULE PO SCH ×3 (09:32→17:17)
[2023-11-08] MEDS: MUPIROCIN OINT 2% 22 GM TUBE TP SCH ×2 (10:30→22:30)
[2023-11-08] MEDS: SOD FERRIC GLUC 125 MG in IV NS 0.9% 100 ML IV SCH (14:43)
[2023-11-08 16:00] VITALS: BP 110/66; TEMP 98.6; O2SAT 99
[2023-11-08 20:00] VITALS: BP 105/61; TEMP 97.3; O2SAT 98
[2023-11-08] MEDS: INSULIN GLARGINE, 100 UNIT/ML CARTRIDGE SQ SCH (22:09)
[2023-11-09] MEDS: CEFEPIME 2 GM in IV D5W 100 ML IV SCH ×2 (00:07→12:06)
[2023-11-09] MEDS: oxyCODONE IR immediate release 5 MG PO PRN ×3 (03:39→13:22)
[2023-11-09 04:00] VITALS: BP 108/64; TEMP 98.1; O2SAT 99
[2023-11-09 06:51] LABS: BASOPHILS % (AUTO) 0.9 % (0.0-2.0); EOSINOPHILS # (AUTO) 0.3 K/uL (0.0-0.7); EOSINOPHILS % (AUTO) 7.6 % (0.0-6.0); HEMATOCRIT 21 % (39-51); HEMOGLOBIN 7.1 g/dL (13.5-17.5); LYMPHOCYTES # (AUTO) 1.3 K/uL (0.8-4.8); LYMPHOCYTES % (AUTO) 37.8 % (20.0-44.0); MEAN CORPUSCULAR HEMOGLOBIN 31 PG (26.0-33.0); MEAN CORPUSCULAR HGB CONC 33 g/dl (31.0-36.0); MEAN CORPUSCULAR VOLUME 92 fL (80-96); MONOCYTES # (AUTO) 0.4 K/uL (0.1-1.30); MONOCYTES % (AUTO) 10.4 % (2.0-12.0); NEUTROPHILS # (AUTO) 1.5 K/uL (1.8-8.9); NEUTROPHILS % (AUTO) 43.3 % (43.0-81.0); PLATELET COUNT (AUTO) 145 K/uL (150-450); RED BLOOD CELL COUNT(AUTO) 2.32 MIL/uL (4.5-6.0); RED CELL DISTRIBUTION WIDTH 16.8 % (11.5-15.0); WHITE BLOOD COUNT (AUTO) 3.5 K/uL (4.3-11.0)
[2023-11-09 07:27] LABS: ALBUMIN 2.5 g/dL (3.4-5.0); BILIRUBIN,TOTAL 0.2 mg/dL (0.2-1.0); CALCIUM, SERUM 8.4 mg/dL (8.5-10.1); CREATININE 0.9 mg/dL (0.6-1.3); POTASSIUM 5.2 mmol/L (3.5-5.1); TOTAL PROTEIN, SERUM 6.3 g/dL (6.4-8.2)
[2023-11-09] MEDS: BLOOD SUGAR DIAGNOSTIC 1 EACH STRIP IN SCH ×2 (07:51→11:23)
[2023-11-09] MEDS: INSULIN REGULAR, HUMAN 100 UNIT/ML 3 ML VIAL SQ PRN (07:54)
[2023-11-09 08:00] VITALS: BP 104/76; TEMP 98; O2SAT 98
[2023-11-09] MEDS: PANTOPRAZOLE 40 MG TABLET.DR PO SCH (08:29)
[2023-11-09] MEDS: PREGABALIN 100 MG CAPSULE PO SCH ×2 (08:29→12:06)
[2023-11-09] MEDS: LINEZOLID 600 MG TABLET PO SCH (08:29)
[2023-11-09] MEDS: DAKINS QUARTER STRENGTH (0.125%) 480 ML BOTTLE TOP SCH (08:29)
[2023-11-09] MEDS ORDERED: FERR325T23 PO (09:26)
[2023-11-09] MEDS ORDERED: LEVO500T90 PO (09:26)
[2023-11-09] MEDS ORDERED: OXYC15TA2 PO (09:26)
[2023-11-09] MEDS ORDERED: Linezolid PO (09:32)
[2023-11-09] MEDS ORDERED: SODIUM POLYSTYRENE SULFONATE 15 G/60 ML BOTTLE PO ONE (10:00)
[2023-11-09] MEDS: MUPIROCIN OINT 2% 22 GM TUBE TP SCH (10:38)
[2023-11-09] MEDS: SOD FERRIC GLUC 125 MG in IV NS 0.9% 100 ML IV SCH (13:20)
== END 2023-11-09 15:13 | disposition home health service (06) | DRG 638 ==
LOC: ER 22:08 → EDBD 22:08 → TELE1 10-21 02:42 → MEDSG1 10-21 03:30 → TELE-TD 10-29 15:07 → MEDSG1 10-30 11:14
PROVIDERS: ADMIT Nurse Practitioner Acute Care; ATTEND Internal Medicine
PROC: B41DYZZ Fluoroscopy of Aorta and Bilateral Lower Extremity Arteries using Other Contrast (ICD-10-PCS; principal; 2023-10-29)
PROC: 04HK33Z Insertion of Infusion Device into Right Femoral Artery, Percutaneous Approach (ICD-10-PCS; 2023-10-29)
PROC: 05HC33Z Insertion of Infusion Device into Left Basilic Vein, Percutaneous Approach (ICD-10-PCS; 2023-10-31)
DX: E11.69 Type 2 diabetes mellitus with other specified complication (principal); E87.1 Hypo-osmolality and hyponatremia; T82.898A Other specified complication of vascular prosthetic devices, implants and grafts, initial encounter; L03.115 Cellulitis of right lower limb; M86.171 Other acute osteomyelitis, right ankle and foot; E87.20 Acidosis, unspecified; N17.9 Acute kidney failure, unspecified; X58.XXXA Exposure to other specified factors, initial encounter; Y92.099 Unspecified place in other non-institutional residence as the place of occurrence of the external cause; Z79.4 Long term (current) use of insulin; S61.210A Laceration without foreign body of right index finger without damage to nail, initial encounter; L97.519 Non-pressure chronic ulcer of other part of right foot with unspecified severity; Z53.9 Procedure and treatment not carried out, unspecified reason; Z87.891 Personal history of nicotine dependence; M89.8X9 Other specified disorders of bone, unspecified site; D75.839 Thrombocytosis, unspecified; D63.8 Anemia in other chronic diseases classified elsewhere; E03.9 Hypothyroidism, unspecified; E88.09 Other disorders of plasma-protein metabolism, not elsewhere classified; E78.5 Hyperlipidemia, unspecified; E87.8 Other disorders of electrolyte and fluid balance, not elsewhere classified; E11.40 Type 2 diabetes mellitus with diabetic neuropathy, unspecified; E11.51 Type 2 diabetes mellitus with diabetic peripheral angiopathy without gangrene; E11.621 Type 2 diabetes mellitus with foot ulcer; E11.65 Type 2 diabetes mellitus with hyperglycemia; D50.9 Iron deficiency anemia, unspecified; E83.42 Hypomagnesemia; E87.6 Hypokalemia; I10 Essential (primary) hypertension; I25.10 Atherosclerotic heart disease of native coronary artery without angina pectoris; M21.379 Foot drop, unspecified foot; L29.9 Pruritus, unspecified; I70.228 Atherosclerosis of native arteries of extremities with rest pain, other extremity; Y83.8 Other surgical procedures as the cause of abnormal reaction of the patient, or of later complication, without mention of misadventure at the time of the procedure
CPT/HCPCS: 36246; 36410; 36415; 70450-TC; 71045-TC; 73130-TC; 73700-TC; 75625; 80048-TC; 80053-TC; 80061-TC; 80076-TC; 80202-TC; 82140-TC; 82272-TC; 82962-TC; 83540-TC; 83605-TC; 83735-TC; 84100-TC; 84443-TC; 85025-TC; 85610-TC; 85730-TC; 86850-TC; 87040-TC; 93307-TC; A4223; A6253; A6403; C1769; C1887; C1894; C9113; G0378; G0480; J0692; J1644; J1815; J2250; J2916; J3010; J3370; J3475; J3490; J7030; J7040; J7050; J7060; P9045; Q9967

== ENCOUNTER 2023-11-25 07:57 | Emergency (ER) | payer MEDICARE ==
[~2023-11-25] VITALS: Ht 177.8 cm; Wt 78.0 kg
[~2023-11-25 07:57] MED LIST: OXYC15TA2 PO
[2023-11-25] MEDS: IV NS 0.9% 1,000 ML BAG IV ONE (08:42)
[2023-11-25 08:54] LABS: BASOPHILS % (AUTO) 0.3 % (0.0-2.0); EOSINOPHILS # (AUTO) 0.3 K/uL (0.0-0.7); EOSINOPHILS % (AUTO) 2.4 % (0.0-6.0); HEMATOCRIT 29 % (39-51); HEMOGLOBIN 9.3 g/dL (13.5-17.5); LYMPHOCYTES # (AUTO) 1.5 K/uL (0.8-4.8); MEAN CORPUSCULAR HEMOGLOBIN 29 PG (26.0-33.0); MEAN CORPUSCULAR HGB CONC 33 g/dl (31.0-36.0); MEAN CORPUSCULAR VOLUME 90 fL (80-96); MONOCYTES # (AUTO) 1.1 K/uL (0.1-1.30); MONOCYTES % (AUTO) 9.5 % (2.0-12.0); NEUTROPHILS # (AUTO) 8.3 K/uL (1.8-8.9); NEUTROPHILS % (AUTO) 74.8 % (43.0-81.0); PLATELET COUNT (AUTO) 604 K/uL (150-450); RED BLOOD CELL COUNT(AUTO) 3.19 MIL/uL (4.5-6.0); RED CELL DISTRIBUTION WIDTH 17.8 % (11.5-15.0); WHITE BLOOD COUNT (AUTO) 11.2 K/uL (4.3-11.0)
[2023-11-25 09:02] LABS: CALCIUM, SERUM 9.5 mg/dL (8.5-10.1); CREATININE 1.1 mg/dL (0.6-1.3); POTASSIUM 3.4 mmol/L (3.5-5.1)
[2023-11-25] MEDS ORDERED: INSU100I26 SQ (10:49)
[2023-11-25 13:18] VITALS: BP 128/72; TEMP 98.6; O2SAT 98
== END 2023-11-25 12:50 ==
LOC: ER 08:00
DX: Z76.0 Encounter for issue of repeat prescription (principal); E11.65 Type 2 diabetes mellitus with hyperglycemia; I10 Essential (primary) hypertension; Z79.4 Long term (current) use of insulin; Z88.8 Allergy status to other drugs, medicaments and biological substances
CPT/HCPCS: 99283; 96360; 96361; 85025; 80048; 36415; J7030

== ENCOUNTER 2023-11-29 16:40 | Inpatient (IN) | payer MEDICARE ==
[~2023-11-29] VITALS: Ht 177.8 cm; Wt 75.7 kg
[~2023-11-29 16:40] MED LIST changes: +INSU100I26 SQ
[2023-11-29] MEDS ORDERED: FOLI0.4T6 PO (19:19)
[2023-11-29] MEDS ORDERED: ERGO500093 PO (19:19)
[2023-11-29] MEDS ORDERED: ASCO-340 PO (19:19)
[2023-11-29] MEDS ORDERED: POLY17PO4 PO (19:19)
[2023-11-29] MEDS ORDERED: MULT-754 PO (19:19)
[2023-11-29] MEDS ORDERED: METH-647 PO (19:19)
[2023-11-29] MEDS ORDERED: DULO30CA52 PO (19:19)
[2023-11-29] MEDS ORDERED: GEMF600T90 PO (19:19)
[2023-11-29] MEDS ORDERED: CLOP75TA15 PO (19:19)
[2023-11-29] MEDS ORDERED: INSU100I40 SQ (19:19)
[2023-11-29] MEDS ORDERED: PREG100C PO (19:19)
[2023-11-29] MEDS ORDERED: BUSP10TA3 PO (19:19)
[2023-11-29] MEDS ORDERED: INSU100V7 SQ (19:19)
[2023-11-29] MEDS ORDERED: ASPI-1420 PO (19:19)
[2023-11-29] MEDS ORDERED: CEFTRIAXONE 1GM BAG (ER ONLY) 50 ML IV ONE (19:31)
[2023-11-29 19:44] LABS: BASOPHILS # (AUTO) 0.1 K/uL (0.0-0.2); BASOPHILS % (AUTO) 1.1 % (0.0-2.0); EOSINOPHILS # (AUTO) 0.5 K/uL (0.0-0.7); EOSINOPHILS % (AUTO) 5.6 % (0.0-6.0); HEMATOCRIT 29 % (39-51); HEMOGLOBIN 9.7 g/dL (13.5-17.5); LYMPHOCYTES # (AUTO) 2.6 K/uL (0.8-4.8); LYMPHOCYTES % (AUTO) 30.8 % (20.0-44.0); MEAN CORPUSCULAR HEMOGLOBIN 30 PG (26.0-33.0); MEAN CORPUSCULAR HGB CONC 33 g/dl (31.0-36.0); MEAN CORPUSCULAR VOLUME 89 fL (80-96); MONOCYTES # (AUTO) 0.6 K/uL (0.1-1.30); NEUTROPHILS # (AUTO) 4.7 K/uL (1.8-8.9); NEUTROPHILS % (AUTO) 55.5 % (43.0-81.0); PLATELET COUNT (AUTO) 602 K/uL (150-450); RED BLOOD CELL COUNT(AUTO) 3.28 MIL/uL (4.5-6.0); RED CELL DISTRIBUTION WIDTH 18.4 % (11.5-15.0); WHITE BLOOD COUNT (AUTO) 8.5 K/uL (4.3-11.0)
[2023-11-29] MEDS: CEFTRIAXONE 1 G in IV D5W 50 ML IV ONE (19:54)
[2023-11-29 20:14] LABS: ALBUMIN 3.1 g/dL (3.4-5.0); BILIRUBIN,TOTAL 0.2 mg/dL (0.2-1.0); CALCIUM, SERUM 9.5 mg/dL (8.5-10.1); POTASSIUM 3.1 mmol/L (3.5-5.1); TOTAL PROTEIN, SERUM 7.7 g/dL (6.4-8.2)
[2023-11-29 20:17] LABS: LACTIC ACID 0.7 mmol/L (0.4-2.0)
[2023-11-29] MEDS ORDERED: ACETAMINOPHEN 325 MG TABLET PO PRN (23:30)
[2023-11-29] MEDS ORDERED: MAGNESIUM HYDROXIDE 30 ML UDC PO PRN (23:30)
[2023-11-29] MEDS ORDERED: HYDROCODONE/APAP 5/325MG TABLET PO PRN (23:30)
[2023-11-29] MEDS ORDERED: MAG HYDROX/AL HYDROX/SIMETH 30 ML UDC PO PRN (23:30)
[2023-11-29] MEDS ORDERED: DEXTROSE 50%-WATER 50 ML DISP.SYRIN IV PRN (23:30)
[2023-11-29] MEDS ORDERED: Z GUARD REMEDY 4 OZ OINT TP PRN (23:30)
[2023-11-30] MEDS: POTASSIUM CHLORIDE 20 MEQ TAB.PRT.SR PO ONE (02:50)
[2023-11-30] MEDS: ENOXAPARIN SODIUM 40 MG/0.4 ML DISP.SYRIN SQ SCH (02:52)
[2023-11-30] MEDS: IV NS 0.9% 1,000 ML IV PRN (03:49)
[2023-11-30] MEDS: BLOOD SUGAR DIAGNOSTIC 1 EACH STRIP IN SCH (06:40)
[2023-11-30] MEDS: INSULIN REGULAR, HUMAN 100 UNIT/ML 3 ML VIAL SQ PRN (06:45)
[2023-11-30 07:11] LABS: BASOPHILS # (AUTO) 0.1 K/uL (0.0-0.2); BASOPHILS % (AUTO) 1.2 % (0.0-2.0); EOSINOPHILS # (AUTO) 0.4 K/uL (0.0-0.7); EOSINOPHILS % (AUTO) 7.1 % (0.0-6.0); HEMATOCRIT 27 % (39-51); HEMOGLOBIN 9.1 g/dL (13.5-17.5); LYMPHOCYTES # (AUTO) 1.9 K/uL (0.8-4.8); MEAN CORPUSCULAR HEMOGLOBIN 30 PG (26.0-33.0); MEAN CORPUSCULAR HGB CONC 34 g/dl (31.0-36.0); MEAN CORPUSCULAR VOLUME 89 fL (80-96); MONOCYTES # (AUTO) 0.3 K/uL (0.1-1.30); NEUTROPHILS # (AUTO) 2.7 K/uL (1.8-8.9); NEUTROPHILS % (AUTO) 49.7 % (43.0-81.0); PLATELET COUNT (AUTO) 456 K/uL (150-450); RED BLOOD CELL COUNT(AUTO) 3.02 MIL/uL (4.5-6.0); RED CELL DISTRIBUTION WIDTH 18.3 % (11.5-15.0); WHITE BLOOD COUNT (AUTO) 5.4 K/uL (4.3-11.0)
[2023-11-30 07:30] VITALS: BP 155/82; TEMP 98.2; O2SAT 100
[2023-11-30 07:30] LABS: CALCIUM, SERUM 8.9 mg/dL (8.5-10.1); CREATININE 0.9 mg/dL (0.6-1.3); MAGNESIUM 1.5 mg/dL (1.8-2.4); PHOSPHORUS 2.3 mg/dL (2.5-4.9); POTASSIUM 3.3 mmol/L (3.5-5.1)
[2023-11-30] MEDS: PANTOPRAZOLE 40 MG TABLET.DR PO SCH (07:58)
[2023-11-30] MEDS: HYDROCODONE/APAP 10/325MG TABLET PO PRN (08:22)
[2023-11-30] MEDS ORDERED: CEFEPIME 1 GM in IV D5W 50 ML IV SCH (09:00)
[2023-11-30] MEDS: CEFEPIME 2 GM in IV D5W 100 ML IV SCH (09:51)
[2023-11-30] MEDS: POTASSIUM CHLORIDE 20 MEQ TAB.PRT.SR PO SCH (10:10)
[2023-11-30] MEDS: MAGNESIUM OXIDE 400 MG TABLET PO ONE (10:10)
[2023-11-30] MEDS: K PHOS NEUTRAL 250 MG TABLET PO ONE (11:20)
[2023-11-30 16:00] VITALS: BP 162/79; TEMP 98.3; O2SAT 98
[2023-11-30 20:00] VITALS: BP 143/68; TEMP 97.3; O2SAT 99
[2023-11-30 21:57] VITALS: BP 143/68; TEMP 97.3; O2SAT 99
[2023-12-01 07:08] LABS: BASOPHILS % (AUTO) 0.6 % (0.0-2.0); EOSINOPHILS # (AUTO) 0.3 K/uL (0.0-0.7); EOSINOPHILS % (AUTO) 5.2 % (0.0-6.0); HEMATOCRIT 27 % (39-51); LYMPHOCYTES # (AUTO) 1.4 K/uL (0.8-4.8); LYMPHOCYTES % (AUTO) 23.8 % (20.0-44.0); MEAN CORPUSCULAR HEMOGLOBIN 29 PG (26.0-33.0); MEAN CORPUSCULAR HGB CONC 33 g/dl (31.0-36.0); MEAN CORPUSCULAR VOLUME 89 fL (80-96); MONOCYTES # (AUTO) 0.3 K/uL (0.1-1.30); MONOCYTES % (AUTO) 5.3 % (2.0-12.0); NEUTROPHILS # (AUTO) 3.9 K/uL (1.8-8.9); NEUTROPHILS % (AUTO) 65.1 % (43.0-81.0); PLATELET COUNT (AUTO) 355 K/uL (150-450); RED BLOOD CELL COUNT(AUTO) 3.05 MIL/uL (4.5-6.0); RED CELL DISTRIBUTION WIDTH 18.4 % (11.5-15.0)
[2023-12-01 07:30] VITALS: BP 146/83; TEMP 98.1; O2SAT 99
[2023-12-01 07:36] LABS: CALCIUM, SERUM 8.2 mg/dL (8.5-10.1); CREATININE 0.8 mg/dL (0.6-1.3); MAGNESIUM 1.4 mg/dL (1.8-2.4); PHOSPHORUS 2.8 mg/dL (2.5-4.9); POTASSIUM 3.3 mmol/L (3.5-5.1)
[2023-12-01 10:00] VITALS: BP 146/83; TEMP 98.1; O2SAT 99
[2023-12-01] MEDS: POTASSIUM CHLORIDE 20 MEQ TAB.PRT.SR PO SCH (11:28)
[2023-12-01] MEDS: MAGNESIUM OXIDE 400 MG TABLET PO ONE (11:28)
[2023-12-01] MEDS ORDERED: METHOCARBAMOL (500MG) 500 MG TABLET PO PRN (13:30)
[2023-12-01] MEDS: busPIRone 5 MG TABLET PO SCH (17:21)
[2023-12-01] MEDS: GEMFIBROZIL 600 MG TABLET PO SCH (17:21)
[2023-12-01] MEDS: PREGABALIN 100 MG CAPSULE PO SCH (17:21)
[2023-12-01] MEDS: oxyCODONE IR immediate release 5 MG PO PRN (17:55)
[2023-12-01 20:00] VITALS: BP 135/73; TEMP 98.1; O2SAT 100
[2023-12-01] MEDS: INSULIN GLARGINE, 100 UNIT/ML CARTRIDGE SQ SCH (22:31)
[2023-12-02 07:32] LABS: BASOPHILS % (AUTO) 0.8 % (0.0-2.0); EOSINOPHILS # (AUTO) 0.3 K/uL (0.0-0.7); EOSINOPHILS % (AUTO) 5.2 % (0.0-6.0); HEMATOCRIT 26 % (39-51); HEMOGLOBIN 8.7 g/dL (13.5-17.5); LYMPHOCYTES # (AUTO) 1.5 K/uL (0.8-4.8); LYMPHOCYTES % (AUTO) 29.8 % (20.0-44.0); MEAN CORPUSCULAR HEMOGLOBIN 30 PG (26.0-33.0); MEAN CORPUSCULAR HGB CONC 33 g/dl (31.0-36.0); MEAN CORPUSCULAR VOLUME 90 fL (80-96); MONOCYTES # (AUTO) 0.4 K/uL (0.1-1.30); MONOCYTES % (AUTO) 7.6 % (2.0-12.0); NEUTROPHILS # (AUTO) 2.8 K/uL (1.8-8.9); NEUTROPHILS % (AUTO) 56.6 % (43.0-81.0); PLATELET COUNT (AUTO) 328 K/uL (150-450); RED BLOOD CELL COUNT(AUTO) 2.92 MIL/uL (4.5-6.0); RED CELL DISTRIBUTION WIDTH 18.1 % (11.5-15.0)
[2023-12-02 07:47] LABS: CALCIUM, SERUM 8.5 mg/dL (8.5-10.1); CREATININE 0.9 mg/dL (0.6-1.3); POTASSIUM 3.4 mmol/L (3.5-5.1)
[2023-12-02 08:00] VITALS: BP_SYST 132; BP_SYST 140; BP_DIAS 75; BP_DIAS 80; TEMP 98.2; TEMP 98.6; O2SAT 99
[2023-12-02] MEDS: ASPIRIN EC 81 MG TABLET.DR PO SCH (09:02)
[2023-12-02] MEDS: MULTIVITAMINS,THERAGRAN 1 UDTAB TABLET PO SCH (09:03)
[2023-12-02] MEDS: ASCORBIC ACID 500 MG TABLET PO SCH (09:03)
[2023-12-02] MEDS: FOLIC ACID 1 MG TABLET PO SCH (09:03)
[2023-12-02] MEDS: DULOXETINE HCL 30 MG CAPSULE.DR PO SCH (09:04)
[2023-12-02] MEDS: CLOPIDOGREL BISULFATE 75 MG TABLET PO SCH (09:04)
[2023-12-02] MEDS: POLYETHYLENE GLYCOL 3350 17 GM POWD.PACK PO SCH (09:07)
[2023-12-02] MEDS: INSULIN GLARGINE, 100 UNIT/ML CARTRIDGE SQ SCH (09:48)
[2023-12-02 11:51] LABS: IRON, SERUM 48 ug/dl (50-175); TOTAL IRON BINDING CAPACITY 372 ug/dl (250-450)
[2023-12-02 12:25] LABS: BILIRUBIN,DIRECT 0.5 mg/dL (0.0-0.2); BILIRUBIN,TOTAL 0.6 mg/dL (0.2-1.0)
[2023-12-02] MEDS: POTASSIUM CHLORIDE 20 MEQ TAB.PRT.SR PO SCH (12:25)
[2023-12-02 16:00] VITALS: BP 127/76; TEMP 98.2; O2SAT 99
[2023-12-02 20:00] VITALS: BP 112/90; TEMP 97.9; O2SAT 99
[2023-12-02] MEDS ORDERED: VANCOMYCIN 500 MG VIAL ONE (22:52)
[2023-12-02] MEDS: VANCOMYCIN 1.5 GM in IV D5W 500ml IV ONE (23:01)
[2023-12-03 04:09] LABS: FOLIC ACID > 20.0 ng/mL (>3.0)
[2023-12-03 07:06] LABS: HAPTOGLOBIN 160 mg/dL (32-363); IMMUNOGLOBULIN A, SERUM 383 mg/dL (61-437); IMMUNOGLOBULIN G, SERUM 621 mg/dL (603-1613); IMMUNOGLOBULIN M, SERUM 108 mg/dL (20-172)
[2023-12-03 08:00] VITALS: BP 129/81; TEMP 98.1; O2SAT 94
[2023-12-03 08:09] LABS: *SPE A/G RATIO 0.9 (0.7-1.7); *SPE ALBUMIN 2.8 g/dL (2.9-4.4); *SPE ALPHA-1-GLOBULIN 0.3 g/dL (0.0-0.4); *SPE ALPHA-2-GLOBULIN 0.9 g/dL (0.4-1.0); *SPE BETA GLOBULIN 1.2 g/dL (0.7-1.3); *SPE GLOBULIN, TOTAL 3.1 g/dL (2.2-3.9); *SPE M-SPIKE Not Observed g/dL (Not Observed); *SPE PROTEIN TOTAL 5.9 g/dL (6.0-8.5); *SPEGAMMA GLOBULIN 0.7 g/dL (0.4-1.8)
[2023-12-03] MEDS: MUPIROCIN OINT 2% 22 GM TUBE TP SCH (08:28)
[2023-12-03] MEDS: INSULIN GLARGINE, 100 UNIT/ML CARTRIDGE SQ SCH (09:30)
[2023-12-03 09:52] LABS: HEMOGLOBIN 9.5 g/dL (13.5-17.5)
[2023-12-03] MEDS: VANCOMYCIN 1 GM in IV D5W 250 ML IV SCH (11:23)
[2023-12-03 12:08] LABS: FREE KAPPA LT CHAINS SERUM 38.7 mg/L (3.3-19.4); FREE LAMBDA LT CHAIN SERUM 39.5 mg/L (5.7-26.3); KAPPA/LAMBDA RATIO SERUM 0.98 (0.26-1.65)
[2023-12-03 16:00] VITALS: BP 153/83; TEMP 98.6; O2SAT 97
[2023-12-03 20:00] VITALS: BP 120/68; TEMP 98.4; O2SAT 96
[2023-12-04 06:48] LABS: BASOPHILS % (AUTO) 0.7 % (0.0-2.0); EOSINOPHILS # (AUTO) 0.1 K/uL (0.0-0.7); EOSINOPHILS % (AUTO) 3.6 % (0.0-6.0); HEMATOCRIT 26 % (39-51); LYMPHOCYTES % (AUTO) 25.6 % (20.0-44.0); MEAN CORPUSCULAR HEMOGLOBIN 31 PG (26.0-33.0); MEAN CORPUSCULAR HGB CONC 34 g/dl (31.0-36.0); MEAN CORPUSCULAR VOLUME 90 fL (80-96); MONOCYTES # (AUTO) 0.6 K/uL (0.1-1.30); MONOCYTES % (AUTO) 14.1 % (2.0-12.0); NEUTROPHILS # (AUTO) 2.3 K/uL (1.8-8.9); PLATELET COUNT (AUTO) 262 K/uL (150-450); RED BLOOD CELL COUNT(AUTO) 2.93 MIL/uL (4.5-6.0); RED CELL DISTRIBUTION WIDTH 18.4 % (11.5-15.0)
[2023-12-04] MEDS ORDERED: BUPIVACAINE 0.5 % PF 150 MG/30 ML VIAL ONE (07:01)
[2023-12-04] MEDS ORDERED: LIDOCAINE HCL/MPF 1% 30 ML VIAL IJ ONE (07:01)
[2023-12-04] MEDS ORDERED: ANESTHESIA TRAY IN PYXIS 1 EA TRAY MC ONE (07:01)
[2023-12-04 07:28] LABS: CALCIUM, SERUM 8.5 mg/dL (8.5-10.1); CREATININE 0.7 mg/dL (0.6-1.3); MAGNESIUM 1.6 mg/dL (1.8-2.4); PHOSPHORUS 3.2 mg/dL (2.5-4.9); POTASSIUM 3.8 mmol/L (3.5-5.1)
[2023-12-04] MEDS ORDERED: FENTANYL PF 100MCG/2ML AMPUL ONE (07:30)
[2023-12-04] MEDS ORDERED: PROPOFOL 100 ML ONE (07:30)
[2023-12-04] MEDS ORDERED: MIDAZOLAM HCL 2 MG/2ML VIAL ONE (07:30)
[2023-12-04] MEDS ORDERED: FAMOTIDINE/PF INJ 20 MG/2 ML VIAL IV ONE (07:30)
[2023-12-04 07:33] LABS: OCCULT BLOOD STOOL NEGATIVE (NEGATIVE)
[2023-12-04 08:30] VITALS: BP 120/78; TEMP 98.4; O2SAT 98
[2023-12-04 09:00] VITALS: BP 120/78; TEMP 98.4; O2SAT 98
[2023-12-04] MEDS: MAGNESIUM OXIDE 400 MG TABLET PO ONE (11:08)
[2023-12-04] MEDS: ERGOCALCIFEROL (VITAMIN D 2) 50,000 UNIT CAPSULE PO SCH (11:10)
[2023-12-04 11:13] LABS: INR 1.03 (0.91-1.10); PARTIAL THROMBOPLASTIN TIME 33.7 SEC (24.3-34.3); PROTHROMBIN TIME 10.9 SECS (9.2-11.1)
[2023-12-04 12:21] LABS: RHEUMATOID FACTOR SCREEN NEGATIVE (NEGATIVE)
[2023-12-04] MEDS: FERROUS SULFATE (325 MG) 325 MG/TAB TABLET PO SCH (13:01)
[2023-12-04 16:00] VITALS: BP 115/67; TEMP 98.6; O2SAT 98
[2023-12-04 21:42] VITALS: BP 123/70; TEMP 99; O2SAT 98
[2023-12-05 07:05] LABS: BASOPHILS % (AUTO) 0.5 % (0.0-2.0); EOSINOPHILS # (AUTO) 0.2 K/uL (0.0-0.7); EOSINOPHILS % (AUTO) 5.6 % (0.0-6.0); HEMATOCRIT 27 % (39-51); LYMPHOCYTES # (AUTO) 1.4 K/uL (0.8-4.8); LYMPHOCYTES % (AUTO) 34.5 % (20.0-44.0); MEAN CORPUSCULAR HEMOGLOBIN 30 PG (26.0-33.0); MEAN CORPUSCULAR HGB CONC 33 g/dl (31.0-36.0); MEAN CORPUSCULAR VOLUME 90 fL (80-96); MONOCYTES # (AUTO) 0.6 K/uL (0.1-1.30); MONOCYTES % (AUTO) 15.1 % (2.0-12.0); NEUTROPHILS # (AUTO) 1.8 K/uL (1.8-8.9); NEUTROPHILS % (AUTO) 44.3 % (43.0-81.0); PLATELET COUNT (AUTO) 252 K/uL (150-450); RED BLOOD CELL COUNT(AUTO) 3.03 MIL/uL (4.5-6.0); RED CELL DISTRIBUTION WIDTH 18.4 % (11.5-15.0)
[2023-12-05 07:50] LABS: CALCIUM, SERUM 8.4 mg/dL (8.5-10.1); CREATININE 0.9 mg/dL (0.6-1.3); POTASSIUM 4.2 mmol/L (3.5-5.1)
[2023-12-05 11:08] LABS: HEPATITIS B SURFACE AB Non Reactive (.)
[2023-12-05] MEDS: SOD FERRIC GLUC 125 MG in IV NS 0.9% 100 ML IV SCH (14:00)
[2023-12-05 20:00] VITALS: BP 110/66; TEMP 98; O2SAT 99
[2023-12-06 04:00] VITALS: BP 124/60; TEMP 98; O2SAT 96
[2023-12-06 07:00] VITALS: BP 111/70; TEMP 99.9; O2SAT 97
[2023-12-06 07:02] LABS: BASOPHILS % (AUTO) 0.4 % (0.0-2.0); EOSINOPHILS # (AUTO) 0.3 K/uL (0.0-0.7); EOSINOPHILS % (AUTO) 5.9 % (0.0-6.0); HEMATOCRIT 29 % (39-51); HEMOGLOBIN 9.2 g/dL (13.5-17.5); LYMPHOCYTES # (AUTO) 1.5 K/uL (0.8-4.8); LYMPHOCYTES % (AUTO) 29.9 % (20.0-44.0); MEAN CORPUSCULAR HEMOGLOBIN 29 PG (26.0-33.0); MEAN CORPUSCULAR HGB CONC 32 g/dl (31.0-36.0); MEAN CORPUSCULAR VOLUME 91 fL (80-96); MONOCYTES # (AUTO) 0.6 K/uL (0.1-1.30); MONOCYTES % (AUTO) 12.7 % (2.0-12.0); NEUTROPHILS # (AUTO) 2.5 K/uL (1.8-8.9); NEUTROPHILS % (AUTO) 51.1 % (43.0-81.0); PLATELET COUNT (AUTO) 275 K/uL (150-450); RED BLOOD CELL COUNT(AUTO) 3.16 MIL/uL (4.5-6.0); RED CELL DISTRIBUTION WIDTH 18.4 % (11.5-15.0)
[2023-12-06 07:29] LABS: CALCIUM, SERUM 8.5 mg/dL (8.5-10.1); CREATININE 0.8 mg/dL (0.6-1.3); POTASSIUM 4.4 mmol/L (3.5-5.1)
[2023-12-06] MEDS: CYANOCOBALAMIN 100 MCG TABLET PO SCH (08:26)
[2023-12-06 12:11] LABS: *ANA ANTI-CENTROMERE B AB <0.2 AI (0.0-0.9); *ANA ANTI-DNA(DS) AB, QN 1 IU/mL (0-9); *ANA ANTI-JO-1 <0.2 AI (0.0-0.9); *ANA ANTICHROMATIN ANTIBODY <0.2 AI (0.0-0.9); *ANA RNP ANTIBODIES <0.2 AI (0.0-0.9); *ANA SJOGREN'S ANTI-SS-A <0.2 AI (0.0-0.9); *ANA SJOGREN'S ANTI-SS-B <0.2 AI (0.0-0.9); *ANAANTI-SCLERODERMA-70 AB <0.2 AI (0.0-0.9); *ANASMITH AB <0.2 AI (0.0-0.9)
[2023-12-06] MEDS: SOD FERRIC GLUC 125 MG in IV NS 0.9% 100 ML IV SCH (15:14)
[2023-12-06 16:00] VITALS: BP 133/78; TEMP 99.1; O2SAT 97
[2023-12-06 20:00] VITALS: BP 138/78; TEMP 97.9; O2SAT 97
[2023-12-07 07:00] VITALS: BP 94/61; TEMP 98.2; O2SAT 97
[2023-12-07 07:23] LABS: BASOPHILS % (AUTO) 0.6 % (0.0-2.0); EOSINOPHILS # (AUTO) 0.4 K/uL (0.0-0.7); EOSINOPHILS % (AUTO) 7.2 % (0.0-6.0); HEMATOCRIT 29 % (39-51); HEMOGLOBIN 9.5 g/dL (13.5-17.5); LYMPHOCYTES # (AUTO) 1.8 K/uL (0.8-4.8); LYMPHOCYTES % (AUTO) 35.2 % (20.0-44.0); MEAN CORPUSCULAR HEMOGLOBIN 30 PG (26.0-33.0); MEAN CORPUSCULAR HGB CONC 33 g/dl (31.0-36.0); MEAN CORPUSCULAR VOLUME 90 fL (80-96); MONOCYTES # (AUTO) 0.7 K/uL (0.1-1.30); MONOCYTES % (AUTO) 14.4 % (2.0-12.0); NEUTROPHILS # (AUTO) 2.1 K/uL (1.8-8.9); NEUTROPHILS % (AUTO) 42.6 % (43.0-81.0); PLATELET COUNT (AUTO) 309 K/uL (150-450); RED BLOOD CELL COUNT(AUTO) 3.16 MIL/uL (4.5-6.0); RED CELL DISTRIBUTION WIDTH 18.2 % (11.5-15.0)
[2023-12-07] MEDS: VANCOMYCIN 1 GM in IV D5W 250 ML IV SCH (10:07)
[2023-12-07 11:00] LABS: CALCIUM, SERUM 8.3 mg/dL (8.5-10.1); CREATININE 0.8 mg/dL (0.6-1.3); POTASSIUM 5.6 mmol/L (3.5-5.1)
[2023-12-07 20:00] VITALS: BP 101/63; TEMP 98.1; O2SAT 96
[2023-12-07 20:25] VITALS: BP 101/63; TEMP 98.1; O2SAT 96
[2023-12-08 06:45] LABS: BASOPHILS % (AUTO) 0.4 % (0.0-2.0); EOSINOPHILS # (AUTO) 0.4 K/uL (0.0-0.7); EOSINOPHILS % (AUTO) 6.4 % (0.0-6.0); HEMATOCRIT 29 % (39-51); HEMOGLOBIN 9.4 g/dL (13.5-17.5); LYMPHOCYTES % (AUTO) 31.1 % (20.0-44.0); MEAN CORPUSCULAR HEMOGLOBIN 30 PG (26.0-33.0); MEAN CORPUSCULAR HGB CONC 33 g/dl (31.0-36.0); MEAN CORPUSCULAR VOLUME 92 fL (80-96); MONOCYTES # (AUTO) 0.7 K/uL (0.1-1.30); MONOCYTES % (AUTO) 10.6 % (2.0-12.0); NEUTROPHILS # (AUTO) 3.3 K/uL (1.8-8.9); NEUTROPHILS % (AUTO) 51.5 % (43.0-81.0); PLATELET COUNT (AUTO) 303 K/uL (150-450); RED BLOOD CELL COUNT(AUTO) 3.13 MIL/uL (4.5-6.0); RED CELL DISTRIBUTION WIDTH 17.9 % (11.5-15.0); WHITE BLOOD COUNT (AUTO) 6.3 K/uL (4.3-11.0)
[2023-12-08 08:18] LABS: CALCIUM, SERUM 8.8 mg/dL (8.5-10.1); CREATININE 0.8 mg/dL (0.6-1.3); POTASSIUM 4.4 mmol/L (3.5-5.1)
[2023-12-08 08:30] VITALS: BP 126/80; TEMP 98.4; O2SAT 95
[2023-12-08 16:00] VITALS: BP 115/71; TEMP 97.9; O2SAT 96
[2023-12-08 20:00] VITALS: BP 138/78; TEMP 98.1; O2SAT 97
[2023-12-09 07:30] VITALS: BP 130/77; TEMP 98.2; O2SAT 99
[2023-12-09 08:02] LABS: CALCIUM, SERUM 9.1 mg/dL (8.5-10.1); CREATININE 0.9 mg/dL (0.6-1.3); POTASSIUM 4.3 mmol/L (3.5-5.1)
[2023-12-09 14:04] LABS: BASOPHILS # (AUTO) 0.1 K/uL (0.0-0.2); BASOPHILS % (AUTO) 1.1 % (0.0-2.0); EOSINOPHILS # (AUTO) 0.3 K/uL (0.0-0.7); EOSINOPHILS % (AUTO) 6.3 % (0.0-6.0); HEMATOCRIT 29 % (39-51); HEMOGLOBIN 9.3 g/dL (13.5-17.5); LYMPHOCYTES # (AUTO) 2.2 K/uL (0.8-4.8); LYMPHOCYTES % (AUTO) 40.8 % (20.0-44.0); MEAN CORPUSCULAR HEMOGLOBIN 30 PG (26.0-33.0); MEAN CORPUSCULAR HGB CONC 32 g/dl (31.0-36.0); MEAN CORPUSCULAR VOLUME 93 fL (80-96); MONOCYTES # (AUTO) 0.6 K/uL (0.1-1.30); MONOCYTES % (AUTO) 11.2 % (2.0-12.0); NEUTROPHILS # (AUTO) 2.2 K/uL (1.8-8.9); NEUTROPHILS % (AUTO) 40.6 % (43.0-81.0); PLATELET COUNT (AUTO) 314 K/uL (150-450); RED BLOOD CELL COUNT(AUTO) 3.13 MIL/uL (4.5-6.0); RED CELL DISTRIBUTION WIDTH 18.4 % (11.5-15.0); WHITE BLOOD COUNT (AUTO) 5.4 K/uL (4.3-11.0)
[2023-12-09 16:33] VITALS: BP 131/66; TEMP 98.6; O2SAT 97
[2023-12-09 20:00] VITALS: BP 113/60; TEMP 98.1; O2SAT 98
[2023-12-10] VITALS (16 sets, daily range): BP systolic 87–186; BP diastolic 43–77; TEMP 97.7–98.5; O2SAT 96–100
[2023-12-10 07:22] LABS: BASOPHILS % (AUTO) 0.4 % (0.0-2.0); EOSINOPHILS # (AUTO) 0.3 K/uL (0.0-0.7); EOSINOPHILS % (AUTO) 5.9 % (0.0-6.0); HEMATOCRIT 29 % (39-51); HEMOGLOBIN 9.3 g/dL (13.5-17.5); LYMPHOCYTES # (AUTO) 1.7 K/uL (0.8-4.8); LYMPHOCYTES % (AUTO) 33.7 % (20.0-44.0); MEAN CORPUSCULAR HEMOGLOBIN 31 PG (26.0-33.0); MEAN CORPUSCULAR HGB CONC 32 g/dl (31.0-36.0); MEAN CORPUSCULAR VOLUME 95 fL (80-96); MONOCYTES # (AUTO) 0.6 K/uL (0.1-1.30); MONOCYTES % (AUTO) 11.9 % (2.0-12.0); NEUTROPHILS # (AUTO) 2.5 K/uL (1.8-8.9); NEUTROPHILS % (AUTO) 48.1 % (43.0-81.0); PLATELET COUNT (AUTO) 291 K/uL (150-450); RED BLOOD CELL COUNT(AUTO) 3.05 MIL/uL (4.5-6.0); RED CELL DISTRIBUTION WIDTH 18.4 % (11.5-15.0); WHITE BLOOD COUNT (AUTO) 5.2 K/uL (4.3-11.0)
[2023-12-10 07:42] LABS: CALCIUM, SERUM 8.7 mg/dL (8.5-10.1)
[2023-12-10 07:52] LABS: PARTIAL THROMBOPLASTIN TIME 37.5 SEC (24.3-34.3); PROTHROMBIN TIME 10.6 SECS (9.2-11.1)
[2023-12-10] MEDS: VANCOMYCIN 1 GM /D5W 250 ML PB IV ONE (08:04)
[2023-12-10] MEDS: CYANOCOBALAMIN 1,000 MCG/ML VIAL SQ SCH (09:00)
[2023-12-10] MEDS ORDERED: CELLULOSE,OXIDIZED 1 PKT EACH MC ONE (10:21)
[2023-12-10] MEDS ORDERED: HEPARIN SODIUM, PORCINE 1,000 UNIT/ML VIAL ONE (10:21)
[2023-12-10] MEDS ORDERED: LIDOCAINE HCL/MPF 1% 30 ML VIAL IJ ONE (10:21)
[2023-12-10] MEDS ORDERED: CELLULOSE,OXIDIZED 1 EA PACK MC ONE (10:21)
[2023-12-10] MEDS ORDERED: IOHEXOL 0 ML IV ONE (10:21)
[2023-12-10] MEDS ORDERED: HEMOSTATIC MATRIX 8 ML 1 EACH PAD MC ONE (10:21)
[2023-12-10] MEDS ORDERED: BUPIVACAINE 0.5 % PF 150 MG/30 ML VIAL ONE (10:21)
[2023-12-10] MEDS ORDERED: GELATIN SPONGE,ABSORBABLE 1 EA SPONGE TP ONE (10:22)
[2023-12-10] MEDS ORDERED: GELATIN SPONGE,ABSORBABLE 1 SPONGE SPONGE TP ONE (10:22)
[2023-12-10] MEDS ORDERED: CELLULOSE,OXIDIZED 1 EACH EACH MC ONE (10:22)
[2023-12-10] MEDS ORDERED: ROCURONIUM BROMIDE 50 MG/5 ML ONE ×2 (10:45→15:57)
[2023-12-10 11:04] LABS: ALBUMIN 2.8 g/dL (3.4-5.0); BILIRUBIN,DIRECT 0.1 mg/dL (0.0-0.2); BILIRUBIN,TOTAL 0.1 mg/dL (0.2-1.0); TOTAL PROTEIN, SERUM 6.8 g/dL (6.4-8.2)
[2023-12-10] MEDS ORDERED: VANCOMYCIN 1 GM VIAL ONE (12:33)
[2023-12-10] MEDS ORDERED: ROPIVACAINE HCL 0.5% 5 MG/ML 30ML VIAL ONE (12:33)
[2023-12-10] MEDS ORDERED: POLYMYXIN B SULFATE 500,000 UNITS ONE (12:33)
[2023-12-10] MEDS ORDERED: PAPAVERINE HCL 30 MG/ML 10 MLVIAL ONE (13:25)
[2023-12-10] MEDS ORDERED: HEPARIN SODIUM, PORCINE 5000 UNITS/1 ML VIAL ONE (13:39)
[2023-12-10] MEDS ORDERED: METHYLENE BLUE 10 ML VIAL ONE (14:16)
[2023-12-10] MEDS ORDERED: ALBUMIN 5% 250 ML IV ONE (14:49)
[2023-12-10] MEDS ORDERED: protAMINE SULFATE 10 MG/ML VIAL IV ONE (15:09)
[2023-12-10] MEDS ORDERED: ATROPINE SULFATE 1 MG/10 ML DISP.SYRIN ONE (15:55)
[2023-12-10] MEDS ORDERED: DIAZEPAM 5 MG/ML 2 ML DISP.SYRIN IV PRN (16:30)
[2023-12-10] MEDS: DIAZEPAM 5 MG/ML 2 ML DISP.SYRIN IM/IV PRN (16:35)
[2023-12-10] MEDS ORDERED: PROPOFOL 100 ML IV PRN (17:30)
[2023-12-10] MEDS: PHENYLEPHRINE 100 MG in IV NS 0.9% 240 ML IV PRN (17:31)
[2023-12-10] MEDS: ONDANSETRON HCL/PF 4 MG/2 ML VIAL IVP PRN (18:02)
[2023-12-10] MEDS: HYDROMORPHONE 1 MG/1 ML DISP.SYRIN IV PRN (18:27)
[2023-12-10 18:40] LABS: BASOPHILS # (AUTO) 0.2 K/uL (0.0-0.2); BASOPHILS % (AUTO) 0.8 % (0.0-2.0); EOSINOPHILS # (AUTO) 0.1 K/uL (0.0-0.7); EOSINOPHILS % (AUTO) 0.5 % (0.0-6.0); HEMATOCRIT 31 % (39-51); LYMPHOCYTES # (AUTO) 1.4 K/uL (0.8-4.8); MEAN CORPUSCULAR HEMOGLOBIN 30 PG (26.0-33.0); MEAN CORPUSCULAR HGB CONC 32 g/dl (31.0-36.0); MEAN CORPUSCULAR VOLUME 93 fL (80-96); MONOCYTES # (AUTO) 1.6 K/uL (0.1-1.30); NEUTROPHILS # (AUTO) 16.9 K/uL (1.8-8.9); NEUTROPHILS % (AUTO) 83.7 % (43.0-81.0); PLATELET COUNT (AUTO) 285 K/uL (150-450); RED BLOOD CELL COUNT(AUTO) 3.34 MIL/uL (4.5-6.0); RED CELL DISTRIBUTION WIDTH 15.5 % (11.5-15.0); WHITE BLOOD COUNT (AUTO) 20.2 K/uL (4.3-11.0)
[2023-12-10 19:05] LABS: CALCIUM, SERUM 6.9 mg/dL (8.5-10.1); POTASSIUM 5.5 mmol/L (3.5-5.1)
[2023-12-10 19:50] LABS: ANISOCYTOSIS 1+; PLATELET ESTIMATE ADEQUATE
[2023-12-10 19:52] LABS: BAND % (MANUAL) 5 % (0.0-5.0); LYMPHOCYTES % (MANUAL) 5 % (16-48); NEUTROPHILS % (MANUAL) 82 (42-76)
[2023-12-10 19:53] LABS: MONOCYTES % (MANUAL) 8 % (0-11.0)
[2023-12-10] MEDS ORDERED: ATROPINE SULFATE 1 MG/10 ML DISP.SYRIN IV ONE (20:07)
[2023-12-10] MEDS: NOREPINEPHRINE 32 MG in IV NS 0.9% 218 ML IV PRN (21:38)
[2023-12-11] VITALS (36 sets, daily range): BP systolic 86–127; BP diastolic 45–97; TEMP 97.8–98.4; O2SAT 93–100
[2023-12-11] MEDS: TEMAZEPAM 15 MG CAPSULE PO PRN (00:43)
[2023-12-11 04:25] LABS: BASOPHILS % (AUTO) 0.4 % (0.0-2.0); EOSINOPHILS % (AUTO) 0.1 % (0.0-6.0); HEMATOCRIT 26 % (39-51); HEMOGLOBIN 8.7 g/dL (13.5-17.5); LYMPHOCYTES # (AUTO) 0.9 K/uL (0.8-4.8); LYMPHOCYTES % (AUTO) 7.5 % (20.0-44.0); MEAN CORPUSCULAR HEMOGLOBIN 31 PG (26.0-33.0); MEAN CORPUSCULAR HGB CONC 34 g/dl (31.0-36.0); MEAN CORPUSCULAR VOLUME 91 fL (80-96); MONOCYTES # (AUTO) 1.2 K/uL (0.1-1.30); MONOCYTES % (AUTO) 10.4 % (2.0-12.0); NEUTROPHILS # (AUTO) 9.4 K/uL (1.8-8.9); NEUTROPHILS % (AUTO) 81.6 % (43.0-81.0); PLATELET COUNT (AUTO) 241 K/uL (150-450); RED BLOOD CELL COUNT(AUTO) 2.84 MIL/uL (4.5-6.0); RED CELL DISTRIBUTION WIDTH 15.8 % (11.5-15.0); WHITE BLOOD COUNT (AUTO) 11.5 K/uL (4.3-11.0)
[2023-12-11 04:39] LABS: CALCIUM, SERUM 7.4 mg/dL (8.5-10.1); CREATININE 0.9 mg/dL (0.6-1.3); POTASSIUM 5.9 mmol/L (3.5-5.1)
[2023-12-11] MEDS: ENOXAPARIN SODIUM 40 MG/0.4 ML DISP.SYRIN SQ SCH (09:00)
[2023-12-11] MEDS: SODIUM POLYSTYRENE SULFONATE 15 G/60 ML BOTTLE PO ONE (09:24)
[2023-12-11] MEDS: HYDROMORPHONE 1 MG/1 ML DISP.SYRIN IV PRN (11:12)
[2023-12-11 15:25] LABS: CALCIUM, SERUM 7.6 mg/dL (8.5-10.1); CREATININE 0.8 mg/dL (0.6-1.3); POTASSIUM 4.7 mmol/L (3.5-5.1)
[2023-12-11] MEDS ORDERED: NOREPINEPHRINE 8 MG in IV D5W 250ML IV PRN ×2 (18:00→20:00)
[2023-12-11 23:00] LABS: APPEARANCE,URINE CLOUDY (CLEAR); BILIRUBIN,URINE NEGATIVE (NEGATIVE); BLOOD, URINE 2+ Ery/uL (NEGATIVE); COLOR,URINE YELLOW (YELLOW); KETONES,URINE NEGATIVE (NEGATIVE); LEUKOCYTE ESTERASE ,URINE 3+ (NEGATIVE); NITRITE, URINE NEGATIVE (NEGATIVE); PROTEIN,URINE 1+ mg/dl (NEGATIVE); UGLUCOSE NEGATIVE (NEGATIVE); UROBILINOGEN,URINE 0.2 EU/dL (0.2)
[2023-12-11 23:24] LABS: ADD URINE CULTURE YES; BACTERIA,URINE 3+ /HPF (None Seen); SQUAMOUS EPITHELIAL CELL,UR None Seen /HPF (None Seen); WBC,URINE TOO NUMEROUS TO COUN /HPF (0-3); YEAST,URINE Few /HPF (None Seen)
[2023-12-11 23:25] LABS: MUCUS,URINE Moderate /LPF (None Seen)
[2023-12-12] VITALS (7 sets, daily range): BP systolic 95–135; BP diastolic 58–93; TEMP 97.1–99.7; O2SAT 97–100
[2023-12-12 00:09] LABS: EOSINOPHIL,URINE Few
[2023-12-12 01:23] LABS: CREATININE, URINE 53.5 MG/DL (30.0-125.0); URINE TOTAL PROTEIN 67.6 mg/dL (0-11.9)
[2023-12-12 07:12] LABS: BASOPHILS % (AUTO) 0.2 % (0.0-2.0); EOSINOPHILS # (AUTO) 0.1 K/uL (0.0-0.7); EOSINOPHILS % (AUTO) 1.6 % (0.0-6.0); HEMATOCRIT 21 % (39-51); HEMOGLOBIN 7.1 g/dL (13.5-17.5); LYMPHOCYTES # (AUTO) 1.1 K/uL (0.8-4.8); LYMPHOCYTES % (AUTO) 14.9 % (20.0-44.0); MEAN CORPUSCULAR HEMOGLOBIN 31 PG (26.0-33.0); MEAN CORPUSCULAR HGB CONC 34 g/dl (31.0-36.0); MEAN CORPUSCULAR VOLUME 91 fL (80-96); MONOCYTES # (AUTO) 1.2 K/uL (0.1-1.30); MONOCYTES % (AUTO) 16.4 % (2.0-12.0); NEUTROPHILS # (AUTO) 4.8 K/uL (1.8-8.9); NEUTROPHILS % (AUTO) 66.9 % (43.0-81.0); PLATELET COUNT (AUTO) 190 K/uL (150-450); RED BLOOD CELL COUNT(AUTO) 2.28 MIL/uL (4.5-6.0); WHITE BLOOD COUNT (AUTO) 7.2 K/uL (4.3-11.0)
[2023-12-12 07:18] LABS: CALCIUM, SERUM 8.2 mg/dL (8.5-10.1); CREATININE 0.9 mg/dL (0.6-1.3); MAGNESIUM 1.5 mg/dL (1.8-2.4); PHOSPHORUS 2.3 mg/dL (2.5-4.9); POTASSIUM 4.2 mmol/L (3.5-5.1)
[2023-12-12 07:49] LABS: FERRITIN 302 ng/mL (8-388)
[2023-12-12 08:59] LABS: IRON, SERUM 7 ug/dl (50-175); TOTAL IRON BINDING CAPACITY 244 ug/dl (250-450)
[2023-12-12] MEDS: MAGNESIUM OXIDE 400 MG TABLET PO ONE (09:05)
[2023-12-12] MEDS: INSULIN GLARGINE, 100 UNIT/ML CARTRIDGE SQ SCH (09:16)
[2023-12-12 10:43] LABS: ANISOCYTOSIS 1+; BASOPHILS % (MANUAL) 0 % (0.0-2.0); EOSINOPHILS % (MANUAL) 1 % (0-4); LYMPHOCYTES % (MANUAL) 16 % (16-48); MONOCYTES % (MANUAL) 13 % (0-11.0); NEUTROPHILS % (MANUAL) 70 (42-76); PLATELET ESTIMATE ADEQUATE
[2023-12-12] MEDS: DOCUSATE SODIUM 100 MG CAPSULE PO SCH (12:51)
[2023-12-12] MEDS: VANCOMYCIN 1.25 GM in IV D5W 250 ML IV SCH (13:50)
[2023-12-12] MEDS: K PHOS NEUTRAL 250 MG TABLET PO ONE (16:53)
[2023-12-13 07:00] VITALS: BP 99/69; TEMP 97.7; O2SAT 99
[2023-12-13 07:36] LABS: CALCIUM, SERUM 8.7 mg/dL (8.5-10.1); MAGNESIUM 1.6 mg/dL (1.8-2.4); PHOSPHORUS 2.5 mg/dL (2.5-4.9)
[2023-12-13] MEDS ORDERED: VANCOMYCIN 1.25 GM in IV D5W 250 ML IV SCH (09:00)
[2023-12-13 11:31] LABS: BASOPHILS % (AUTO) 0.2 % (0.0-2.0); EOSINOPHILS # (AUTO) 0.3 K/uL (0.0-0.7); HEMATOCRIT 24 % (39-51); HEMOGLOBIN 7.9 g/dL (13.5-17.5); LYMPHOCYTES # (AUTO) 1.3 K/uL (0.8-4.8); LYMPHOCYTES % (AUTO) 14.6 % (20.0-44.0); MEAN CORPUSCULAR HEMOGLOBIN 31 PG (26.0-33.0); MEAN CORPUSCULAR HGB CONC 33 g/dl (31.0-36.0); MEAN CORPUSCULAR VOLUME 93 fL (80-96); MONOCYTES % (AUTO) 11.7 % (2.0-12.0); NEUTROPHILS # (AUTO) 6.3 K/uL (1.8-8.9); NEUTROPHILS % (AUTO) 70.5 % (43.0-81.0); PLATELET COUNT (AUTO) 233 K/uL (150-450); RED BLOOD CELL COUNT(AUTO) 2.53 MIL/uL (4.5-6.0); RED CELL DISTRIBUTION WIDTH 16.2 % (11.5-15.0); WHITE BLOOD COUNT (AUTO) 8.9 K/uL (4.3-11.0)
[2023-12-13] MEDS: MAGNESIUM OXIDE 400 MG TABLET PO ONE (12:03)
[2023-12-13 16:00] VITALS: BP 92/62; TEMP 97.6; O2SAT 100
[2023-12-13 20:00] VITALS: BP 103/67; TEMP 98.3; O2SAT 97
[2023-12-14] VITALS (13 sets, daily range): BP systolic 96–116; BP diastolic 61–69; TEMP 98–99.3; O2SAT 99–100
[2023-12-14 07:04] LABS: BASOPHILS % (AUTO) 0.4 % (0.0-2.0); EOSINOPHILS # (AUTO) 0.3 K/uL (0.0-0.7); EOSINOPHILS % (AUTO) 3.8 % (0.0-6.0); LYMPHOCYTES # (AUTO) 1.1 K/uL (0.8-4.8); MEAN CORPUSCULAR HEMOGLOBIN 31 PG (26.0-33.0); MEAN CORPUSCULAR HGB CONC 33 g/dl (31.0-36.0); MEAN CORPUSCULAR VOLUME 93 fL (80-96); MONOCYTES # (AUTO) 0.8 K/uL (0.1-1.30); MONOCYTES % (AUTO) 12.9 % (2.0-12.0); NEUTROPHILS # (AUTO) 4.4 K/uL (1.8-8.9); NEUTROPHILS % (AUTO) 66.9 % (43.0-81.0); PLATELET COUNT (AUTO) 243 K/uL (150-450); RED CELL DISTRIBUTION WIDTH 15.4 % (11.5-15.0); WHITE BLOOD COUNT (AUTO) 6.6 K/uL (4.3-11.0)
[2023-12-14 07:13] LABS: CALCIUM, SERUM 8.7 mg/dL (8.5-10.1); POTASSIUM 4.6 mmol/L (3.5-5.1)
[2023-12-14 07:38] LABS: HEMATOCRIT 20 % (39-51); HEMOGLOBIN 6.8 g/dL (13.5-17.5)
[2023-12-14] MEDS: MAGNESIUM OXIDE 400 MG TABLET PO ONE (09:29)
[2023-12-14 10:21] LABS: ANISOCYTOSIS 1+; BASOPHILS % (MANUAL) 0 % (0.0-2.0); EOSINOPHILS % (MANUAL) 3 % (0-4); LYMPHOCYTES % (MANUAL) 15 % (16-48); MONOCYTES % (MANUAL) 13 % (0-11.0); NEUTROPHILS % (MANUAL) 69 (42-76); PLATELET ESTIMATE ADEQUATE
[2023-12-14] MEDS: ACETAMINOPHEN 325 MG TABLET PO ONE (12:41)
[2023-12-14] MEDS: diphenhydrAMINE HCL 50 MG/ML VIAL IV ONE ×2 (12:41→13:29)
[2023-12-14] MEDS: SOD FERRIC GLUC 125 MG in IV NS 0.9% 100 ML IV SCH (17:12)
[2023-12-14 19:57] LABS: HEMOGLOBIN 7.8 g/dL (13.5-17.5)
[2023-12-15 07:07] LABS: BASOPHILS % (AUTO) 0.2 % (0.0-2.0); EOSINOPHILS # (AUTO) 0.3 K/uL (0.0-0.7); EOSINOPHILS % (AUTO) 4.2 % (0.0-6.0); HEMATOCRIT 24 % (39-51); HEMOGLOBIN 8.1 g/dL (13.5-17.5); LYMPHOCYTES % (AUTO) 16.2 % (20.0-44.0); MEAN CORPUSCULAR HEMOGLOBIN 31 PG (26.0-33.0); MEAN CORPUSCULAR HGB CONC 34 g/dl (31.0-36.0); MEAN CORPUSCULAR VOLUME 91 fL (80-96); MONOCYTES # (AUTO) 0.9 K/uL (0.1-1.30); MONOCYTES % (AUTO) 14.1 % (2.0-12.0); NEUTROPHILS # (AUTO) 4.2 K/uL (1.8-8.9); NEUTROPHILS % (AUTO) 65.3 % (43.0-81.0); PLATELET COUNT (AUTO) 300 K/uL (150-450); RED BLOOD CELL COUNT(AUTO) 2.64 MIL/uL (4.5-6.0); RED CELL DISTRIBUTION WIDTH 15.4 % (11.5-15.0); WHITE BLOOD COUNT (AUTO) 6.5 K/uL (4.3-11.0)
[2023-12-15 07:41] LABS: CALCIUM, SERUM 8.9 mg/dL (8.5-10.1); CREATININE 1.1 mg/dL (0.6-1.3); MAGNESIUM 1.6 mg/dL (1.8-2.4); PHOSPHORUS 3.5 mg/dL (2.5-4.9); POTASSIUM 4.6 mmol/L (3.5-5.1)
[2023-12-15 08:18] VITALS: BP 132/65; TEMP 98.4; O2SAT 98
[2023-12-15] MEDS: VANCOMYCIN HCL 0.75 GM in IV D5W 250 ML IV SCH (08:47)
[2023-12-15] MEDS ORDERED: VANC1PLA9 IV (09:28)
[2023-12-15] MEDS ORDERED: CEFE1FRO IV (09:28)
[2023-12-15] MEDS: MAGNESIUM OXIDE 400 MG TABLET PO ONE (10:41)
== END 2023-12-15 14:45 | DRG 574 ==
LOC: ER 17:06 → MED 11-30 01:39 → ICU 12-10 15:45 → MED 12-11 21:47
PROVIDERS: ADMIT Nurse Practitioner Acute Care; ATTEND Internal Medicine
PROC: 0KBV0ZZ Excision of Right Foot Muscle, Open Approach (ICD-10-PCS; principal; 2023-12-04)
PROC: 0HRMXK3 Replacement of Right Foot Skin with Nonautologous Tissue Substitute, Full Thickness, External Approach (ICD-10-PCS; 2023-12-04)
PROC: 0QBL0ZX Excision of Right Tarsal, Open Approach, Diagnostic (ICD-10-PCS; 2023-12-04)
PROC: 30233N1 Transfusion of Nonautologous Red Blood Cells into Peripheral Vein, Percutaneous Approach (ICD-10-PCS; 2023-12-08)
PROC: 041 Lower Arteries, Bypass (ICD-10-PCS; 2023-12-10)
PROC: 04BK0ZZ Excision of Right Femoral Artery, Open Approach (ICD-10-PCS; 2023-12-10)
DX: L03.115 Cellulitis of right lower limb (principal); D61.818 Other pancytopenia; E44.1 Mild protein-calorie malnutrition; M86.8X7 Other osteomyelitis, ankle and foot; D62 Acute posthemorrhagic anemia; E87.1 Hypo-osmolality and hyponatremia; T82.898A Other specified complication of vascular prosthetic devices, implants and grafts, initial encounter; N17.9 Acute kidney failure, unspecified; E11.69 Type 2 diabetes mellitus with other specified complication; E11.40 Type 2 diabetes mellitus with diabetic neuropathy, unspecified; E03.9 Hypothyroidism, unspecified; E11.51 Type 2 diabetes mellitus with diabetic peripheral angiopathy without gangrene; E11.621 Type 2 diabetes mellitus with foot ulcer; E11.42 Type 2 diabetes mellitus with diabetic polyneuropathy; L97.519 Non-pressure chronic ulcer of other part of right foot with unspecified severity; M89.8X9 Other specified disorders of bone, unspecified site; I10 Essential (primary) hypertension; I25.10 Atherosclerotic heart disease of native coronary artery without angina pectoris; Z74.01 Bed confinement status; F42.9 Obsessive-compulsive disorder, unspecified; Z88.5 Allergy status to narcotic agent; Z79.02 Long term (current) use of antithrombotics/antiplatelets; Z79.4 Long term (current) use of insulin; Z79.899 Other long term (current) drug therapy; Z79.82 Long term (current) use of aspirin; E88.09 Other disorders of plasma-protein metabolism, not elsewhere classified; F17.210 Nicotine dependence, cigarettes, uncomplicated; E87.5 Hyperkalemia; E78.5 Hyperlipidemia, unspecified; E53.8 Deficiency of other specified B group vitamins; D50.9 Iron deficiency anemia, unspecified; E87.6 Hypokalemia; F32.A Depression, unspecified; G89.4 Chronic pain syndrome; Z98.890 Other specified postprocedural states; Y83.2 Surgical operation with anastomosis, bypass or graft as the cause of abnormal reaction of the patient, or of later complication, without mention of misadventure at the time of the procedure; Y92.129 Unspecified place in nursing home as the place of occurrence of the external cause; D72.819 Decreased white blood cell count, unspecified; D63.8 Anemia in other chronic diseases classified elsewhere; E11.65 Type 2 diabetes mellitus with hyperglycemia
CPT/HCPCS: 36415; 71045-TC; 73630-TC; 73718-TC; 80048-TC; 80053-TC; 80076-TC; 80202-TC; 81001; 82247-TC; 82248-TC; 82272-TC; 82378; 82570-TC; 82607-TC; 82728-TC; 82784; 82962-TC; 83010; 83540-TC; 83605-TC; 83615-TC; 83735-TC; 83921; 84100-TC; 84132-TC; 84155; 84165; 84300-TC; 85025-TC; 85027-TC; 85045-TC; 85610-TC; 85730-TC; 86225; 86235; 86334; 86431-TC; 86706; 86803; 86850-TC; 86880-TC; 87040-TC; 87081-TC; 87086-TC; 87340; 93307-TC; 97110-TC; 97530-TC; A4223; A4338; A6209; A6253; A6403; C1751; G0378; J0330; J0461; J0690; J0692; J0696; J1170; J1200; J1644; J1650; J1815; J2250; J2405; J2440; J2704; J2720; J2795; J2916; J3010; J3360; J3370; J3420; J3490; J7030; J7050; J7060; P9016; P9045; Q4100; Q4166; Q9967; Q9968

== ENCOUNTER 2023-12-20 04:30 | Inpatient (IN) | payer MEDICARE ==
[~2023-12-20] VITALS: Ht 172.7 cm; Wt 81.6 kg
[~2023-12-20 04:30] MED LIST changes: +ASCO-340 PO; +ASPI-1420 PO; +BUSP10TA3 PO; +CEFE1FRO IV; +CLOP75TA15 PO; +DULO30CA52 PO; +ERGO500093 PO; +FOLI0.4T6 PO; +GEMF600T90 PO; -INSU100I26 SQ; +INSU100I40 SQ; +INSU100V7 SQ; +METH-647 PO; +MULT-754 PO; +POLY17PO4 PO; +PREG100C PO; +VANC1PLA9 IV
[2023-12-20 05:23] LABS: BASOPHILS # (AUTO) 0.1 K/uL (0.0-0.2); BASOPHILS % (AUTO) 0.7 % (0.0-2.0); EOSINOPHILS # (AUTO) 0.5 K/uL (0.0-0.7); HEMATOCRIT 29 % (39-51); HEMOGLOBIN 9.3 g/dL (13.5-17.5); LYMPHOCYTES % (AUTO) 12.7 % (20.0-44.0); MEAN CORPUSCULAR HEMOGLOBIN 30 PG (26.0-33.0); MEAN CORPUSCULAR HGB CONC 32 g/dl (31.0-36.0); MEAN CORPUSCULAR VOLUME 94 fL (80-96); MONOCYTES # (AUTO) 1.3 K/uL (0.1-1.30); MONOCYTES % (AUTO) 8.2 % (2.0-12.0); NEUTROPHILS % (AUTO) 75.4 % (43.0-81.0); PLATELET COUNT (AUTO) 696 K/uL (150-450); RED BLOOD CELL COUNT(AUTO) 3.09 MIL/uL (4.5-6.0); RED CELL DISTRIBUTION WIDTH 15.9 % (11.5-15.0); WHITE BLOOD COUNT (AUTO) 15.9 K/uL (4.3-11.0)
[2023-12-20] MEDS ORDERED: VANCOMYCIN 1 GM /D5W 250 ML PB IV ONE (05:29)
[2023-12-20 05:34] LABS: CALCIUM, SERUM 9.3 mg/dL (8.5-10.1); POTASSIUM 3.7 mmol/L (3.5-5.1)
[2023-12-20 05:48] LABS: ALBUMIN 2.9 g/dL (3.4-5.0); BILIRUBIN,TOTAL 0.6 mg/dL (0.2-1.0); TOTAL PROTEIN, SERUM 7.7 g/dL (6.4-8.2)
[2023-12-20] MEDS: VANCOMYCIN 1 GM in IV D5W 250 ML IV ONE (06:05)
[2023-12-20 06:24] LABS: INR 1.09 (0.91-1.10); PARTIAL THROMBOPLASTIN TIME 45.5 SEC (24.3-34.3); PROTHROMBIN TIME 11.5 SECS (9.2-11.1)
[2023-12-20] MEDS ORDERED: ENOXAPARIN SODIUM 80 MG/0.8 ML DISP.SYRIN SQ ONE (06:24)
[2023-12-20] MEDS: ENOXAPARIN SODIUM 80 MG/0.8 ML DISP.SYRIN SQ ONE (06:26)
[2023-12-20] MEDS ORDERED: ONDANSETRON HCL/PF 4 MG/2 ML VIAL IVP PRN (07:00)
[2023-12-20] MEDS ORDERED: CALC500T53 PO (08:00)
[2023-12-20] MEDS ORDERED: ZINC220C6 PO (08:00)
[2023-12-20] MEDS ORDERED: PROTEIN LIQUID PO (08:00)
[2023-12-20] MEDS ORDERED: DOCU100C36 PO (08:00)
[2023-12-20] MEDS ORDERED: ACET-868 PO (08:00)
[2023-12-20] MEDS ORDERED: CHOL500052 PO (08:00)
[2023-12-20] MEDS ORDERED: VANCOMYCIN IV (08:00)
[2023-12-20] MEDS ORDERED: POVI3780 TP (08:00)
[2023-12-20] MEDS ORDERED: NA P133E RC (08:00)
[2023-12-20] MEDS ORDERED: SENN-261 PO (08:00)
[2023-12-20] MEDS ORDERED: LEVO50TA PO (08:00)
[2023-12-20] MEDS ORDERED: CEFEPIME HCL IV (08:00)
[2023-12-20] MEDS: ACETAMINOPHEN 325 MG TABLET PO PRN (11:00)
[2023-12-20] MEDS ORDERED: HYDROMORPHONE MDV 1 MG in IV D5W 50 ML IV PRN (13:30)
[2023-12-20] MEDS ORDERED: DEXTROSE 50%-WATER 50 ML DISP.SYRIN IV PRN (13:30)
[2023-12-20] MEDS: HYDROMORPHONE 1 MG/1 ML DISP.SYRIN IV PRN (15:12)
[2023-12-20] MEDS: CEFEPIME 2 GM in IV D5W 100 ML IV SCH (15:24)
[2023-12-20] MEDS: IV NS 0.9% 1,000 ML IV PRN (15:24)
[2023-12-20 16:00] VITALS: BP 125/64; TEMP 98.2; O2SAT 99
[2023-12-20] MEDS: VANCOMYCIN 1 GM in IV D5W 250ml IV SCH (17:15)
[2023-12-20] MEDS: busPIRone 5 MG TABLET PO SCH (17:16)
[2023-12-20] MEDS: METHOCARBAMOL (500MG) 500 MG TABLET PO PRN (17:16)
[2023-12-20] MEDS: GEMFIBROZIL 600 MG TABLET PO SCH (17:16)
[2023-12-20] MEDS: BLOOD SUGAR DIAGNOSTIC 1 EACH STRIP VI SCH (17:16)
[2023-12-20] MEDS: oxyCODONE IR immediate release 5 MG PO PRN (17:17)
[2023-12-20] MEDS: INSULIN REGULAR, HUMAN 100 UNIT/ML 3 ML VIAL SQ PRN (17:52)
[2023-12-20] MEDS: ENOXAPARIN SODIUM 80 MG/0.8 ML DISP.SYRIN SQ SCH (19:04)
[2023-12-20 20:00] VITALS: BP 128/72; TEMP 98.2; O2SAT 99
[2023-12-20] MEDS: *INSULIN REGULAR(HUMULIN R)HUM 100 UNIT/ML VIAL SQ PRN (22:07)
[2023-12-20] MEDS: INSULIN GLARGINE, 100 UNIT/ML CARTRIDGE SQ SCH (22:07)
[2023-12-21] VITALS: BP 120/72; TEMP 99; O2SAT 99
[2023-12-21 00:59] VITALS: BP 128/72; TEMP 98.2; O2SAT 99
[2023-12-21 04:00] VITALS: BP 118/58; TEMP 99; O2SAT 99
[2023-12-21 08:00] VITALS: BP 117/71; TEMP 97.5; O2SAT 98
[2023-12-21 08:03] LABS: BASOPHILS % (AUTO) 0.3 % (0.0-2.0); EOSINOPHILS # (AUTO) 0.2 K/uL (0.0-0.7); EOSINOPHILS % (AUTO) 1.7 % (0.0-6.0); HEMATOCRIT 24 % (39-51); HEMOGLOBIN 8.1 g/dL (13.5-17.5); LYMPHOCYTES % (AUTO) 10.8 % (20.0-44.0); MEAN CORPUSCULAR HEMOGLOBIN 30 PG (26.0-33.0); MEAN CORPUSCULAR HGB CONC 33 g/dl (31.0-36.0); MEAN CORPUSCULAR VOLUME 89 fL (80-96); MONOCYTES # (AUTO) 0.8 K/uL (0.1-1.30); MONOCYTES % (AUTO) 8.3 % (2.0-12.0); NEUTROPHILS # (AUTO) 7.6 K/uL (1.8-8.9); NEUTROPHILS % (AUTO) 78.9 % (43.0-81.0); PLATELET COUNT (AUTO) 580 K/uL (150-450); RED BLOOD CELL COUNT(AUTO) 2.72 MIL/uL (4.5-6.0); RED CELL DISTRIBUTION WIDTH 15.2 % (11.5-15.0); WHITE BLOOD COUNT (AUTO) 9.6 K/uL (4.3-11.0)
[2023-12-21] MEDS: DOCUSATE SODIUM 100 MG CAPSULE PO SCH (08:13)
[2023-12-21] MEDS: LEVOTHYROXINE SODIUM 50 MCG TABLET PO SCH (08:13)
[2023-12-21] MEDS: DULOXETINE HCL 30 MG CAPSULE.DR PO SCH (08:14)
[2023-12-21] MEDS: CLOPIDOGREL BISULFATE 75 MG TABLET PO SCH (08:14)
[2023-12-21] MEDS: CALCIUM CARBONATE (1250) 500 MG TABLET PO SCH (08:15)
[2023-12-21 08:24] LABS: CALCIUM, SERUM 8.4 mg/dL (8.5-10.1); CREATININE 0.9 mg/dL (0.6-1.3); MAGNESIUM 1.7 mg/dL (1.8-2.4); PHOSPHORUS 2.4 mg/dL (2.5-4.9); POTASSIUM 3.6 mmol/L (3.5-5.1)
[2023-12-21] MEDS: MAGNESIUM OXIDE 400 MG TABLET PO ONE (10:43)
[2023-12-21] MEDS ORDERED: K PHOS NEUTRAL 250 MG TABLET PO ONE (11:00)
[2023-12-21] MEDS: K PHOS NEUTRAL 250 MG TABLET PO ONE (11:05)
[2023-12-21 16:00] VITALS: BP 133/73; TEMP 98.4; O2SAT 100
[2023-12-21] MEDS: VANCOMYCIN HCL 0.75 GM in IV D5W 250 ML IV SCH (19:46)
[2023-12-22 07:22] LABS: CALCIUM, SERUM 8.4 mg/dL (8.5-10.1); CREATININE 0.9 mg/dL (0.6-1.3); MAGNESIUM 1.5 mg/dL (1.8-2.4); PHOSPHORUS 3.2 mg/dL (2.5-4.9)
[2023-12-22 08:00] VITALS: BP 130/82; TEMP 99; O2SAT 98
[2023-12-22 08:48] LABS: BASOPHILS % (AUTO) 0.7 % (0.0-2.0); EOSINOPHILS # (AUTO) 0.3 K/uL (0.0-0.7); EOSINOPHILS % (AUTO) 3.9 % (0.0-6.0); HEMATOCRIT 27 % (39-51); HEMOGLOBIN 8.7 g/dL (13.5-17.5); LYMPHOCYTES # (AUTO) 1.5 K/uL (0.8-4.8); LYMPHOCYTES % (AUTO) 20.6 % (20.0-44.0); MEAN CORPUSCULAR HEMOGLOBIN 29 PG (26.0-33.0); MEAN CORPUSCULAR HGB CONC 33 g/dl (31.0-36.0); MEAN CORPUSCULAR VOLUME 90 fL (80-96); MONOCYTES # (AUTO) 0.7 K/uL (0.1-1.30); NEUTROPHILS # (AUTO) 4.7 K/uL (1.8-8.9); NEUTROPHILS % (AUTO) 64.8 % (43.0-81.0); PLATELET COUNT (AUTO) 597 K/uL (150-450); RED BLOOD CELL COUNT(AUTO) 2.96 MIL/uL (4.5-6.0); RED CELL DISTRIBUTION WIDTH 15.4 % (11.5-15.0); WHITE BLOOD COUNT (AUTO) 7.3 K/uL (4.3-11.0)
[2023-12-22] MEDS: INSULIN GLARGINE, 100 UNIT/ML CARTRIDGE SQ SCH (09:29)
[2023-12-22] MEDS: MAGNESIUM OXIDE 400 MG TABLET PO ONE (10:18)
[2023-12-22 16:00] VITALS: BP 135/79; TEMP 98.4; O2SAT 99
[2023-12-22 20:00] VITALS: BP 135/74; TEMP 98.9; O2SAT 99
[2023-12-23 07:31] LABS: BASOPHILS % (AUTO) 0.4 % (0.0-2.0); EOSINOPHILS # (AUTO) 0.3 K/uL (0.0-0.7); EOSINOPHILS % (AUTO) 2.8 % (0.0-6.0); HEMATOCRIT 30 % (39-51); LYMPHOCYTES # (AUTO) 1.3 K/uL (0.8-4.8); MEAN CORPUSCULAR HEMOGLOBIN 29 PG (26.0-33.0); MEAN CORPUSCULAR HGB CONC 33 g/dl (31.0-36.0); MEAN CORPUSCULAR VOLUME 89 fL (80-96); MONOCYTES # (AUTO) 0.7 K/uL (0.1-1.30); MONOCYTES % (AUTO) 7.5 % (2.0-12.0); NEUTROPHILS # (AUTO) 7.5 K/uL (1.8-8.9); NEUTROPHILS % (AUTO) 76.3 % (43.0-81.0); PLATELET COUNT (AUTO) 751 K/uL (150-450); RED BLOOD CELL COUNT(AUTO) 3.41 MIL/uL (4.5-6.0); RED CELL DISTRIBUTION WIDTH 15.3 % (11.5-15.0); WHITE BLOOD COUNT (AUTO) 9.8 K/uL (4.3-11.0)
[2023-12-23 07:51] LABS: CREATININE 0.8 mg/dL (0.6-1.3); MAGNESIUM 1.6 mg/dL (1.8-2.4); POTASSIUM 4.1 mmol/L (3.5-5.1)
[2023-12-23 07:57] LABS: CALCIUM, SERUM 9.2 mg/dL (8.5-10.1)
[2023-12-23 08:00] VITALS: BP 108/60; TEMP 98.8; O2SAT 94
[2023-12-23] MEDS: MAGNESIUM OXIDE 400 MG TABLET PO ONE (10:28)
[2023-12-23] MEDS: ENOXAPARIN SODIUM 80 MG/0.8 ML DISP.SYRIN SQ SCH (14:36)
[2023-12-23 16:00] VITALS: BP 133/86; TEMP 98.4; O2SAT 98
[2023-12-23 20:00] VITALS: BP 138/80; TEMP 98.2; O2SAT 99
[2023-12-23] MEDS: VANCOMYCIN 1 GM in IV D5W 250 ML IV SCH (21:45)
[2023-12-24 07:10] LABS: CALCIUM, SERUM 9.5 mg/dL (8.5-10.1); CREATININE 0.8 mg/dL (0.6-1.3); POTASSIUM 4.2 mmol/L (3.5-5.1)
[2023-12-24 07:24] LABS: BASOPHILS % (AUTO) 0.5 % (0.0-2.0); EOSINOPHILS # (AUTO) 0.3 K/uL (0.0-0.7); HEMATOCRIT 29 % (39-51); HEMOGLOBIN 10.1 g/dL (13.5-17.5); LYMPHOCYTES # (AUTO) 1.8 K/uL (0.8-4.8); MEAN CORPUSCULAR HEMOGLOBIN 30 PG (26.0-33.0); MEAN CORPUSCULAR HGB CONC 35 g/dl (31.0-36.0); MEAN CORPUSCULAR VOLUME 88 fL (80-96); MONOCYTES # (AUTO) 0.8 K/uL (0.1-1.30); MONOCYTES % (AUTO) 9.5 % (2.0-12.0); NEUTROPHILS # (AUTO) 5.6 K/uL (1.8-8.9); PLATELET COUNT (AUTO) 783 K/uL (150-450); RED BLOOD CELL COUNT(AUTO) 3.33 MIL/uL (4.5-6.0); RED CELL DISTRIBUTION WIDTH 15.5 % (11.5-15.0); WHITE BLOOD COUNT (AUTO) 8.7 K/uL (4.3-11.0)
[2023-12-24 08:32] LABS: BAND % (MANUAL) 3 % (0.0-5.0); NEUTROPHILS % (MANUAL) 65 (42-76)
[2023-12-24 08:33] LABS: ANISOCYTOSIS 1+; EOSINOPHILS % (MANUAL) 4 % (0-4); HYPOCHROMASIA 1+; LYMPHOCYTES % (MANUAL) 21 % (16-48); MONOCYTES % (MANUAL) 7 % (0-11.0); PLATELET ESTIMATE INCREASED
[2023-12-24] MEDS: APIXABAN 5 MG TABLET PO SCH (09:26)
[2023-12-24] MEDS: FLUCONAZOLE (100 MG) 100 MG TABLET PO SCH (12:41)
[2023-12-24 20:00] VITALS: BP_SYST 102; BP_SYST 127; BP_DIAS 63; BP_DIAS 76; TEMP 97.7; TEMP 98.8; O2SAT 95; O2SAT 97
[2023-12-25 07:00] VITALS: BP 116/72; TEMP 98.1; O2SAT 94
[2023-12-25 08:42] LABS: CALCIUM, SERUM 9.6 mg/dL (8.5-10.1); CREATININE 0.8 mg/dL (0.6-1.3); POTASSIUM 5.8 mmol/L (3.5-5.1)
[2023-12-25 16:10] VITALS: BP 132/93; TEMP 97.6; O2SAT 94
[2023-12-25] MEDS: SODIUM POLYSTYRENE SULF. PWD 15 GM UDC PO ONE (17:22)
[2023-12-25 20:00] VITALS: BP 103/65; TEMP 98.2; O2SAT 97
[2023-12-25 20:41] VITALS: BP 103/65; TEMP 98.2; O2SAT 98
[2023-12-26 07:00] VITALS: BP 125/66; TEMP 98.1; O2SAT 98
[2023-12-26 07:22] LABS: CALCIUM, SERUM 9.1 mg/dL (8.5-10.1); CREATININE 1.1 mg/dL (0.6-1.3); POTASSIUM 4.6 mmol/L (3.5-5.1)
== END 2023-12-26 15:37 | DRG 571 ==
LOC: ER 04:39 → MED 08:03 → TELE 11:01 → MED 12-21 12:07
PROVIDERS: ADMIT Internal Medicine; ATTEND Internal Medicine
PROC: 0JBQ0ZZ Excision of Right Foot Subcutaneous Tissue and Fascia, Open Approach (ICD-10-PCS; principal; 2023-12-22)
PROC: 0JBQ0ZZ Excision of Right Foot Subcutaneous Tissue and Fascia, Open Approach (ICD-10-PCS; 2023-12-23)
PROC: 0JBQ0ZZ Excision of Right Foot Subcutaneous Tissue and Fascia, Open Approach (ICD-10-PCS; 2023-12-26)
DX: L03.115 Cellulitis of right lower limb (principal); I82.411 Acute embolism and thrombosis of right femoral vein; E11.40 Type 2 diabetes mellitus with diabetic neuropathy, unspecified; E11.51 Type 2 diabetes mellitus with diabetic peripheral angiopathy without gangrene; I10 Essential (primary) hypertension; S91.301A Unspecified open wound, right foot, initial encounter; E03.9 Hypothyroidism, unspecified; E87.5 Hyperkalemia; Z79.4 Long term (current) use of insulin; D72.829 Elevated white blood cell count, unspecified; I25.10 Atherosclerotic heart disease of native coronary artery without angina pectoris; E11.42 Type 2 diabetes mellitus with diabetic polyneuropathy; E78.5 Hyperlipidemia, unspecified; X58.XXXA Exposure to other specified factors, initial encounter; Y93.9 Activity, unspecified; Y92.129 Unspecified place in nursing home as the place of occurrence of the external cause; F41.9 Anxiety disorder, unspecified; D64.9 Anemia, unspecified; Z87.891 Personal history of nicotine dependence; Z79.84 Long term (current) use of oral hypoglycemic drugs; Z79.02 Long term (current) use of antithrombotics/antiplatelets; Z95.820 Peripheral vascular angioplasty status with implants and grafts
CPT/HCPCS: 36410; 36415; 71045-TC; 80048-TC; 80053-TC; 80202-TC; 82962-TC; 83605-TC; 83735-TC; 84100-TC; 84484-TC; 85025-TC; 85730-TC; 87040-TC; 93971-TC; A4223; A6253; A6403; G0378; J0692; J1170; J1650; J1815; J3370; J7040; J7050; J7060

== ENCOUNTER 2024-07-15 11:37 | Inpatient (IN) | payer MEDICARE, OTHER ==
[~2024-07-15] VITALS: Ht 170.2 cm; Wt 72.6 kg
[~2024-07-15 11:37] MED LIST changes: +ACET-868 PO; -ASPI-1420 PO; +CALC500T53 PO; -CEFE1FRO IV; +CEFEPIME HCL IV; +CHOL500052 PO; +DOCU100C36 PO; -ERGO500093 PO; +LEVO50TA PO; +NA P133E RC; -POLY17PO4 PO; +POVI3780 TP; -PREG100C PO; +PROTEIN LIQUID PO; +SENN-261 PO; -VANC1PLA9 IV; +VANCOMYCIN IV; +ZINC220C6 PO
--- NOTE | 2024-07-15 11:42 | NUR ---
BIBPA FRM 4 SEASONS BILATERAL LEG SWELLING GETTING WORSE. THE PATIENT IN ROOM AIR. DENIES SOB. RESPIRATION REGULAR AND UNLABORED.
[2024-07-15] MEDS ORDERED: TAMS-12 PO (13:11)
[2024-07-15] MEDS ORDERED: [UNRECOGNIZED DRUG - CODE] TP (13:11)
[2024-07-15] MEDS ORDERED: CICL120S2 TP (13:11)
[2024-07-15] MEDS ORDERED: BUSP15TA3 PO (13:11)
[2024-07-15] MEDS ORDERED: BISA10SU11 RC (13:11)
[2024-07-15] MEDS ORDERED: MULT-213 PO (13:11)
[2024-07-15] MEDS ORDERED: PREG50CA PO (13:11)
[2024-07-15 14:08] LABS: BASOPHILS % (AUTO) 0.2 % (0.0-2.0); EOSINOPHILS # (AUTO) 0.2 K/uL (0.0-0.7); HEMATOCRIT 32 % (39-51); HEMOGLOBIN 11.1 g/dL (13.5-17.5); LYMPHOCYTES # (AUTO) 1.6 K/uL (0.8-4.8); LYMPHOCYTES % (AUTO) 17.6 % (20.0-44.0); MEAN CORPUSCULAR HEMOGLOBIN 33 PG (26.0-33.0); MEAN CORPUSCULAR HGB CONC 34 g/dl (31.0-36.0); MEAN CORPUSCULAR VOLUME 95 fL (80-96); MONOCYTES # (AUTO) 0.4 K/uL (0.1-1.30); MONOCYTES % (AUTO) 4.3 % (2.0-12.0); NEUTROPHILS # (AUTO) 6.9 K/uL (1.8-8.9); NEUTROPHILS % (AUTO) 75.9 % (43.0-81.0); PLATELET COUNT (AUTO) 382 K/uL (150-450); RED BLOOD CELL COUNT(AUTO) 3.39 MIL/uL (4.5-6.0); RED CELL DISTRIBUTION WIDTH 14.2 % (11.5-15.0); WHITE BLOOD COUNT (AUTO) 9.2 K/uL (4.3-11.0)
[2024-07-15 14:25] LABS: CREATININE 0.9 mg/dL (0.6-1.3); POTASSIUM 3.5 mmol/L (3.5-5.1)
--- NOTE | 2024-07-15 15:22 | NUR ---
GOT BED 112-1 ADMITTING INFORMED.
--- NOTE | 2024-07-15 16:14 | NUR ---
REPORT GIVEN TO NURSE SANTOS FOR MILAD
--- NOTE | 2024-07-15 16:20 | NUR ---
RN NOTES RECEIVED REPORT FROM LEAN MANAGER CHRISTOPH
--- NOTE | 2024-07-15 17:00 | NUR ---
RN NOTES RECEIVED PT FROM ER VIA MORRIS BY ACLS PROTOCOL. PT AWAKE, IN BED, ON ROOM AIR, SATURATION IS WELL, IV LINE ON RAC 20G, PATENT AND INTACT, PT HAS LEG PAIN ON BOTH EXTREMITIES, SKIN IS CHECKED, PT HAS BILATERALLY LOWER EXTREMITIES EDEMA AND SMALL SCARS. PT CHANGED TO HOSPITAL GOWN, ALL SAFETY MEASURES IN PLACE, BE DIS LOCKED AND IN LOW POSITION, CALL LIGHT WITHIN REACH, BED SIDE WITHIN REACH, WILL CONTINUE TO MONITOR AND WILL ENDORSE IT SOLUTIONS SALES CONSULTANT FIR PLAN OF CARE.
[2024-07-15] MEDS: VANCOMYCIN 1.5 GM in IV D5W 500 ML IV ONE (17:36)
[2024-07-15] MEDS ORDERED: MAGNESIUM HYDROXIDE 30 ML UDC PO PRN (18:30)
[2024-07-15] MEDS ORDERED: ONDANSETRON HCL/PF 4 MG/2 ML VIAL IVP PRN (18:30)
[2024-07-15] MEDS ORDERED: MAG HYDROX/AL HYDROX/SIMETH 30 ML UDC PO PRN (18:30)
[2024-07-15] MEDS ORDERED: Z GUARD REMEDY 4 OZ OINT TP PRN (18:30)
[2024-07-15] MEDS: ENOXAPARIN SODIUM 40 MG/0.4 ML DISP.SYRIN SQ SCH (18:55)
--- NOTE | 2024-07-15 19:30 | NUR ---
AIRCRAFT ENGINEER OPENING NOTES RECEIVED PATIENT IN BED,AWAKE, A/O X2-3. CURRENTLY ON ROOM AIR, SATING 100%. WITH IV ACCESS ON RIGHT AC #20G, PATENT AND INTACT, INFUSING VANCOMYCIN IV AT 250ML/HR. PT C/O LEG PAIN ON BOTH EXTREMITIES, PRN PAIN MEDS GIVEN PER MD ORDER. NOTED WITH BILATERAL LOWER EXTREMITIES EDEMA AND SMALL SCARS. ALL SAFETY MEASURES IN PLACE, BED LOCKED AND LOWEST POSITION. CALL LIGHT WITHIN REACH, BED TABLE WITHIN REACH. WILL CONTINUE CURRENT PLAN OF CARE.
[2024-07-15] MEDS: ACETAMINOPHEN 325 MG TABLET PO PRN (19:49)
[2024-07-15] MEDS ORDERED: hydrALAZINE HCL 25 MG TABLET PO PRN (20:00)
[2024-07-15 22:58] VITALS: BP 142/68; TEMP 96.3; O2SAT 100
[2024-07-16] VITALS: BP 139/81; TEMP 97.3; O2SAT 99
[2024-07-16 04:00] VITALS: BP 128/79; TEMP 98.6; O2SAT 99
[2024-07-16 06:39] LABS: BASOPHILS % (AUTO) 0.2 % (0.0-2.0); EOSINOPHILS # (AUTO) 0.2 K/uL (0.0-0.7); EOSINOPHILS % (AUTO) 3.6 % (0.0-6.0); HEMATOCRIT 30 % (39-51); HEMOGLOBIN 10.5 g/dL (13.5-17.5); LYMPHOCYTES # (AUTO) 1.5 K/uL (0.8-4.8); LYMPHOCYTES % (AUTO) 23.8 % (20.0-44.0); MEAN CORPUSCULAR HEMOGLOBIN 33 PG (26.0-33.0); MEAN CORPUSCULAR HGB CONC 35 g/dl (31.0-36.0); MEAN CORPUSCULAR VOLUME 94 fL (80-96); MONOCYTES # (AUTO) 0.6 K/uL (0.1-1.30); MONOCYTES % (AUTO) 9.2 % (2.0-12.0); NEUTROPHILS % (AUTO) 63.2 % (43.0-81.0); PLATELET COUNT (AUTO) 364 K/uL (150-450); RED BLOOD CELL COUNT(AUTO) 3.21 MIL/uL (4.5-6.0); RED CELL DISTRIBUTION WIDTH 14.2 % (11.5-15.0); WHITE BLOOD COUNT (AUTO) 6.4 K/uL (4.3-11.0)
--- NOTE | 2024-07-16 06:45 | NUR ---
PRESS CUTTER CLOSING NOTES PATIENT IN BED,REMAINS STABLE. AFEBRILE. TOLERATING ROOM AIR, SATING 98%. INTACT IV ACCESS ON RIGHT AC #20G, PATENT, SL. NOTED WITH BILATERAL LOWER EXTREMITIES NONPITTING EDEMA AND SMALL SCARS. ALL DUE MEDS GIVEN ORDERED. CLEANED AND KEPT PT COMFORTABLE. ASSISTED WITH ALL HIS NEEDS. KEPT BED LOCKED AND LOWEST POSITION. CALL LIGHT WITHIN REACH, BED TABLE WITHIN REACH. WILL ENDORSE TO INCOMING SHIFT RN.
[2024-07-16 07:35] LABS: MAGNESIUM 1.3 mg/dL (1.8-2.4)
[2024-07-16 07:39] LABS: CALCIUM, SERUM 8.6 mg/dL (8.5-10.1); CREATININE 0.9 mg/dL (0.6-1.3); POTASSIUM 3.3 mmol/L (3.5-5.1)
--- NOTE | 2024-07-16 07:57 | NUR ---
RN OPENING NOTES PT IS IN BED, AWKE, A/OX3, ABLE TO MAKE NEEDS KNOWN. REPORTED THAT PT IS ASKING FOR FENTANYL FOR PAIN RELIEF. ON RA, TOLERATING WELL. ON TELE READING SR 68. IV ON THE LAC 20G, SL, PATENT AND INTACT. PT IS ABLE TO AMBULATE TO THE BATHROOM, INFORMED Addendum: 07/16/24 at 0800 by KIMMIE WILHELM RN UNFINISHED NOTE
[2024-07-16 08:00] VITALS: BP 146/80; TEMP 97.6; O2SAT 98
--- NOTE | 2024-07-16 08:00 | NUR ---
RN OPENING NOTES PT IS IN BED, AWAKE, A/OX3, ABLE TO MAKE NEEDS KNOWN. REPORTED THAT PT IS ASKING FOR FENTANYL FOR PAIN RELIEF. ON RA, TOLERATING WELL. ON TELE READING SR 68. IV ON THE LAC 20G, SL, PATENT AND INTACT. PT IS ABLE TO AMBULATE TO THE BATHROOM, INFORMED PT TO USE CALL LIGHT WHEN NEED ASSISTANCE WALKING FROM BED TO RESTROOM. SAFETY MEASURES IN PLACE: BED AT LOWEST AND LOCKED POSITION, SIDE RAILS X2, HOB ELEVATED, CALL LIGHT AND TABLE WITHIN REACH.
[2024-07-16 08:13] LABS: THYROID STIMULATING HORMONE 3.18 uIU/mL (0.358-3.74)
[2024-07-16] MEDS: PANTOPRAZOLE 40 MG TABLET.DR PO SCH (08:14)
[2024-07-16] MEDS: POTASSIUM CHLORIDE 20 MEQ TAB.PRT.SR PO SCH (10:01)
[2024-07-16] MEDS: MAGNESIUM OXIDE 400 MG TABLET PO ONE ×2 (10:01→10:03)
--- NOTE | 2024-07-16 10:03 | NUR ---
RN NOTES SPOKE TO PHARMACY ABOUT THE DOUBLE ORDER OF MAGNESIUM OXIDE, NO MISTAKE, ORDER IS FOR 1600MG OF MAG OXIDE, OKAY TO PROVIDED.
[2024-07-16 12:00] VITALS: BP 143/91; TEMP 98.3; O2SAT 98
[2024-07-16 16:00] VITALS: BP 122/74; TEMP 98.2; O2SAT 97
[2024-07-16] MEDS ORDERED: NA PHOS,M-B/NA PHOS,DI-BA 1 EA ENEMA RC PRN (16:00)
[2024-07-16] MEDS ORDERED: BISACODYL SUPP (10 MG) 10 MG/SUPP.RECT SUPP.RECT RC PRN (16:00)
[2024-07-16] MEDS: PREGABALIN 25 MG CAPSULE PO SCH (16:30)
[2024-07-16] MEDS: GEMFIBROZIL 600 MG TABLET PO SCH (16:31)
[2024-07-16] MEDS: VANCOMYCIN HCL 1.25 GM in IV D5W 250 ML IV SCH (16:31)
[2024-07-16] MEDS: busPIRone 5 MG TABLET PO SCH (16:31)
--- NOTE | 2024-07-16 18:52 | NUR ---
RN CLOSING NOTES PT IS IN BED, ASLEEP, A/OX3, ABLE TO MAKE NEEDS KNOWN. ON RA, TOLERATING WELL. ON TELE READING SR. IV ON THE LAC 20G, SL, PATENT AND INTACT. PT IS ABLE TO AMBULATE TO THE BATHROOM, INFORMED PT TO USE CALL LIGHT WHEN NEED ASSISTANCE WALKING FROM BED TO RESTROOM. ALL MEDICATIONS PROVIDED, PTS NEEDS MET, PT AND LINENS ARE CLEANED AND CHANGED. SAFETY MEASURES IMPLEMENTED, BED IN LOWEST LOCKED POSITION, BED ALARM ON, SIDE RAILS UP X3, CALL LIGHT AND TABLE WITHIN REACH. WILL ENDORSE PLAN OF CARE.
--- NOTE | 2024-07-16 19:30 | NUR ---
RN OPENING NOTES RECEIVE PATIENT IN BED AWAKE, AOX2-3 ABLE TO MAKE NEEDS KNOWN, SR ON THE MONITOR, ON ROOM AIR SATING WELL, PATIENT IS AMBULATORY WITH STANDBY ASSIST, IV ACCESS ON LAC G#20SL SAFETY MEASURES IMPLEMENTED, BED IN LOWEST AND LOCK POSITION, BED ALARM ON, CALL LIGHT AND TABLE WITHIN REACH, PLAN OF CARE ONGOING.
--- NOTE | 2024-07-16 19:40 | NUR ---
PATIENT HAS DM, WITH SCHEDULED LANTUS, BUT NO SLIDING SCALE ORDERED, PAGED REED OR WIND INSTRUMENT REPAIRER AWAITING CALL BACK.
[2024-07-16 20:00] VITALS: BP 146/81; TEMP 98.7; O2SAT 100
[2024-07-16] MEDS: ACETAMINOPHEN 325 MG TABLET PO PRN (21:17)
[2024-07-16] MEDS: SENNOSIDES 8.6 MG TABLET PO SCH (21:17)
[2024-07-16] MEDS: ZOLPIDEM TARTRATE 5 MG TABLET PO PRN (21:17)
[2024-07-16] MEDS: TAMSULOSIN 0.4 MG CAP.SR.24H PO SCH (21:18)
[2024-07-16] MEDS ORDERED: INSULIN REGULAR, HUMAN 100 UNIT/ML 3 ML VIAL SQ PRN (21:30)
[2024-07-16] MEDS ORDERED: DEXTROSE 50%-WATER 50 ML DISP.SYRIN IV PRN ×2 (21:30)
[2024-07-16] MEDS: INSULIN GLARGINE, 100 UNIT/ML CARTRIDGE SQ SCH (21:38)
--- NOTE | 2024-07-16 21:39 | NUR ---
patient blood sugar 446 mg/dl, awaiting pharmacy to verify sliding scale, paged absence management consultant, awaiting call back
[2024-07-16] MEDS: BLOOD SUGAR DIAGNOSTIC 1 EACH STRIP IN SCH (21:45)
[2024-07-16] MEDS: *INSULIN REGULAR(HUMULIN R)HUM 100 UNIT/ML VIAL SQ PRN (21:50)
[2024-07-16] MEDS ORDERED: BLOOD SUGAR DIAGNOSTIC 1 EACH STRIP IN SCH (22:00)
[2024-07-17] VITALS (7 sets, daily range): BP systolic 106–140; BP diastolic 64–86; TEMP 97.5–98.9; O2SAT 97–100
--- NOTE | 2024-07-17 06:58 | NUR ---
RN CLOSING NOTES PATIENT IN BED AWAKE, AOX3, ABLE TO MAKE NEEDS KNOWN, AMBULATORY WITH STANDBY ASSIST, VS WNL, NO COMPLAINTS OF PAIN, NO SOB NOTED DURING THE SHIFT, SAFETY MEASURES IMPLEMENTED, BED IN LOWEST AND LOCK POSITION, BED ALARM ON, CALL LIGHT AND TABLE WITHIN REACH, SIDE RAILS UPX2, PLAN OF CARE ONGOING, WILL ENDORSE TO ONCOMING NURSE FOR MILAD.
[2024-07-17 07:09] LABS: BASOPHILS % (AUTO) 0.1 % (0.0-2.0); EOSINOPHILS # (AUTO) 0.1 K/uL (0.0-0.7); EOSINOPHILS % (AUTO) 1.7 % (0.0-6.0); HEMATOCRIT 31 % (39-51); LYMPHOCYTES # (AUTO) 1.5 K/uL (0.8-4.8); LYMPHOCYTES % (AUTO) 19.3 % (20.0-44.0); MEAN CORPUSCULAR HEMOGLOBIN 34 PG (26.0-33.0); MEAN CORPUSCULAR HGB CONC 36 g/dl (31.0-36.0); MEAN CORPUSCULAR VOLUME 95 fL (80-96); MONOCYTES # (AUTO) 0.7 K/uL (0.1-1.30); MONOCYTES % (AUTO) 8.3 % (2.0-12.0); NEUTROPHILS # (AUTO) 5.6 K/uL (1.8-8.9); NEUTROPHILS % (AUTO) 70.6 % (43.0-81.0); PLATELET COUNT (AUTO) 337 K/uL (150-450); RED BLOOD CELL COUNT(AUTO) 3.27 MIL/uL (4.5-6.0); RED CELL DISTRIBUTION WIDTH 14.4 % (11.5-15.0); WHITE BLOOD COUNT (AUTO) 7.9 K/uL (4.3-11.0)
[2024-07-17 07:20] LABS: CALCIUM, SERUM 8.5 mg/dL (8.5-10.1); CREATININE 0.8 mg/dL (0.6-1.3); MAGNESIUM 1.5 mg/dL (1.8-2.4); POTASSIUM 3.4 mmol/L (3.5-5.1)
--- NOTE | 2024-07-17 07:49 | NUR ---
WILD LIFE MANAGER NOTE Patient is in bed resting with his eyes closed. He is currently in bed on room air with no s/s of respiratory distress. He has had all of his current needs met. Patient noted with LAC 20G in place patent flushing well. Has all of his needs met no further concerns noted.
[2024-07-17] MEDS: INSULIN REGULAR, HUMAN 100 UNIT/ML 3 ML VIAL SQ PRN (08:06)
[2024-07-17] MEDS: CALCIUM CARBONATE (1250) 500 MG TABLET PO SCH (08:07)
[2024-07-17] MEDS: DULOXETINE HCL 30 MG CAPSULE.DR PO SCH (08:07)
[2024-07-17] MEDS: DOCUSATE SODIUM 100 MG CAPSULE PO SCH (08:07)
[2024-07-17] MEDS: CLOPIDOGREL BISULFATE 75 MG TABLET PO SCH (08:07)
[2024-07-17] MEDS: FOLIC ACID 1 MG TABLET PO SCH (08:11)
[2024-07-17] MEDS: MULTIVIT W/MINERALS 1 TAB TABLET PO SCH (08:11)
[2024-07-17] MEDS: LEVOTHYROXINE SODIUM 50 MCG TABLET PO SCH (08:11)
[2024-07-17] MEDS ORDERED: PROSTAT (PYXIS) 30 ML UDC PO SCH (09:00)
[2024-07-17] MEDS: PROSOURCE / PROSTAT (PYXIS) 30 ML UDC PO SCH (10:06)
--- NOTE | 2024-07-17 10:12 | NUR ---
POLICE DEPARTMENT SECRETARY NOTE Patient worked with PT was able to do basic ROM, patient to be seen again tomorrow.
[2024-07-17] MEDS: POTASSIUM CHLORIDE 20 MEQ TAB.PRT.SR PO ONE (11:26)
[2024-07-17] MEDS: MAGNESIUM OXIDE 400 MG TABLET PO ONE (11:32)
--- NOTE | 2024-07-17 11:51 | NUR ---
REFRIGERATION TECH NOTE Patient noted with JESSI 535 was notified 10 units given per Sliding scale. No new orders noted at this time.
[2024-07-17] MEDS: CEPHALEXIN MONOHYDRATE 500 MG CAPSULE PO SCH (17:38)
--- NOTE | 2024-07-17 17:55 | NUR ---
MOTOR VEHICLE LICENCE EXAMINER NOTE Patient noted with BS 442 MD was notified 10 units given per sliding scale. No new orders noted just to monitor patient.
--- NOTE | 2024-07-17 18:48 | NUR ---
FORMATION FRACTURING OPERATOR NOTE Patient is in bed with zero s/s of distress, patient is non compliant with his diet he is requesting sweets to eat. Patient has had two episodes of high blood sugar noted no new orders by MD. Patient was educated on diet and high blood sugar levels. He has tolerated all medications well, all PO feedings well. No further concerns noted at this time. Will endorse to oncoming shift.
--- NOTE | 2024-07-17 19:15 | NUR ---
RESEARCH CENTER PARTNER OPENING NOTE RECEIVED PT IN BED, A/O X3. ON ROOM AIR, TOLERATING WELL. NO SIGNS OF DISTRESS NOTED. ON TELE MONITOR CURRENTLY SHOWING SINUS RHYTHM, HR 80s. WITH IV ACCESS ON LEFT AC G#20, SL. SAFETY MEASURES IMPLEMENTED: BED LOCKED AND IN LOWEST POSITION, BED ALARM ON, SIDE RAILS UP, CALL LIGHT AND TABLE WITHIN EASY REACH, WILL CONTINUE PLAN OF CARE.
--- NOTE | 2024-07-17 21:52 | NUR ---
RN NOTE PT'S BLOOD GLUCOSE IS 337MG/DL. 8 UNITS OF INSULIN REGULAR GIVEN PER SLIDING SCALE.
[2024-07-17] MEDS: METHOCARBAMOL (500MG) 500 MG TABLET PO PRN (23:55)
[2024-07-18] VITALS: BP 133/79; TEMP 98.4; O2SAT 97
[2024-07-18 04:00] VITALS: BP 128/63; TEMP 98.5; O2SAT 98
[2024-07-18 06:01] LABS: BASOPHILS % (AUTO) 0.4 % (0.0-2.0); EOSINOPHILS # (AUTO) 0.2 K/uL (0.0-0.7); EOSINOPHILS % (AUTO) 2.1 % (0.0-6.0); HEMATOCRIT 30 % (39-51); HEMOGLOBIN 10.3 g/dL (13.5-17.5); LYMPHOCYTES # (AUTO) 1.9 K/uL (0.8-4.8); LYMPHOCYTES % (AUTO) 24.8 % (20.0-44.0); MEAN CORPUSCULAR HEMOGLOBIN 33 PG (26.0-33.0); MEAN CORPUSCULAR HGB CONC 35 g/dl (31.0-36.0); MEAN CORPUSCULAR VOLUME 95 fL (80-96); MONOCYTES # (AUTO) 0.7 K/uL (0.1-1.30); MONOCYTES % (AUTO) 9.9 % (2.0-12.0); NEUTROPHILS # (AUTO) 4.7 K/uL (1.8-8.9); NEUTROPHILS % (AUTO) 62.8 % (43.0-81.0); PLATELET COUNT (AUTO) 315 K/uL (150-450); RED BLOOD CELL COUNT(AUTO) 3.16 MIL/uL (4.5-6.0); WHITE BLOOD COUNT (AUTO) 7.5 K/uL (4.3-11.0)
[2024-07-18 06:19] LABS: CALCIUM, SERUM 8.9 mg/dL (8.5-10.1); CREATININE 0.7 mg/dL (0.6-1.3); MAGNESIUM 1.7 mg/dL (1.8-2.4); POTASSIUM 3.8 mmol/L (3.5-5.1)
--- NOTE | 2024-07-18 06:37 | NUR ---
NARROW FABRIC CALENDERER CLOSING NOTE PT IN BED, A/O X3. ON ROOM AIR, TOLERATING WELL. NO SIGNS OF DISTRESS NOTED. ON TELE MONITOR CURRENTLY SHOWING SINUS RHYTHM, HR 70s. WITH IV ACCESS ON LEFT AC G#20, SL. DUE MEDS GIVEN ORDERED. SAFETY MEASURES MAINTAINED: BED LOCKED AND IN LOWEST POSITION, BED ALARM ON, SIDE RAILS UP, CALL LIGHT AND TABLE WITHIN EASY REACH, WILL ENDORSE TO AM SHIFT NURSE FOR MILAD.
[2024-07-18 07:06] LABS: PHOSPHORUS 3.2 mg/dL (2.5-4.9)
[2024-07-18 08:00] VITALS: BP 101/62; TEMP 98.3; O2SAT 95
[2024-07-18] MEDS: MAGNESIUM OXIDE 400 MG TABLET PO ONE (10:28)
[2024-07-18 12:00] VITALS: BP 129/65; TEMP 98.1; O2SAT 95
--- NOTE | 2024-07-18 12:17 | NUR ---
DR TORRES WAS NOTIFIED THAT BG= 423 AND 10UNITS INSULIN PER S-SCALE GIVEN. NO NEW ORDER. EVARISTO-NADYA HAIRSTON.
[2024-07-18 16:00] VITALS: BP 137/78; TEMP 98.8; O2SAT 98
[2024-07-18] MEDS: ERGOCALCIFEROL (VITAMIN D 2) 50,000 UNIT CAPSULE PO SCH (16:44)
--- NOTE | 2024-07-18 19:01 | NUR ---
ALL NEEDS ATTENDED/RENDERED. MEDS GIVEN PER ORDER. KEPT PATIENT CLEAN AND COMFORTABLE. ALL SAFETY MEASURES IN-PLACE. ENDORSED TO NURSE JAYASHREEIN FOR CONT OF CARE.
--- NOTE | 2024-07-18 19:30 | NUR ---
RN OPENING NOTE RECEIVED PT IN BED. A/O X3, NO DISTRESS AND DISCOMFORT NOTED. ON ROOM AIR. NO SOB NOTED. DIRECTOR OF PSYCHIATRY IN PLACE READING SR, HR 74. IV ACCESS LAC 20G, SL. ALL SAFETY PRECAUTIONS IN PLACE: BED LOCKED AND IN LOWEST POSITION, SIDE RAILS UP X3, CALL LIGHT AND TABLE WITHIN REACH. WILL CONTINUE PLAN OF CARE.
[2024-07-18 20:00] VITALS: BP 122/69; TEMP 98.4; O2SAT 98
--- NOTE | 2024-07-18 22:00 | NUR ---
PT BG WAS 297. INSULIN COVERAGE GIVE PER SLIDING SCALE. NO S/S OF HYPO/HYPERGLYCEMIA. WILL CONTINUE PLAN OF CARE.
[2024-07-19] VITALS: BP 118/70; TEMP 98.6; O2SAT 98
[2024-07-19 04:00] VITALS: BP 128/82; TEMP 98.8; O2SAT 98
--- NOTE | 2024-07-19 07:00 | NUR ---
RN CLOSING NOTE PT IN BED. A/O X3, NO DISTRESS AND DISCOMFORT NOTED. ON ROOM AIR. NO SOB NOTED. TICK SEWER IN PLACE READING SR, HR 78. IV ACCESS LAC 20G, SL. ALL SAFETY PRECAUTIONS IN PLACE: BED LOCKED AND IN LOWEST POSITION, SIDE RAILS UP X3, CALL LIGHT AND TABLE WITHIN REACH. WILL ENDORSE TO NEXT SHIFT NURSE FOR MILAD.
[2024-07-19 07:03] LABS: BASOPHILS % (AUTO) 0.6 % (0.0-2.0); EOSINOPHILS # (AUTO) 0.2 K/uL (0.0-0.7); EOSINOPHILS % (AUTO) 3.2 % (0.0-6.0); HEMATOCRIT 33 % (39-51); HEMOGLOBIN 11.2 g/dL (13.5-17.5); LYMPHOCYTES # (AUTO) 1.9 K/uL (0.8-4.8); LYMPHOCYTES % (AUTO) 28.6 % (20.0-44.0); MEAN CORPUSCULAR HEMOGLOBIN 32 PG (26.0-33.0); MEAN CORPUSCULAR HGB CONC 34 g/dl (31.0-36.0); MEAN CORPUSCULAR VOLUME 95 fL (80-96); MONOCYTES # (AUTO) 0.6 K/uL (0.1-1.30); NEUTROPHILS # (AUTO) 3.8 K/uL (1.8-8.9); NEUTROPHILS % (AUTO) 58.6 % (43.0-81.0); PLATELET COUNT (AUTO) 348 K/uL (150-450); RED BLOOD CELL COUNT(AUTO) 3.49 MIL/uL (4.5-6.0); RED CELL DISTRIBUTION WIDTH 14.2 % (11.5-15.0); WHITE BLOOD COUNT (AUTO) 6.5 K/uL (4.3-11.0)
--- NOTE | 2024-07-19 07:21 | NUR ---
RN OPENING NOTE RECEIVED PT IN BED. A/O X3, NO DISTRESS AND DISCOMFORT NOTED NOTED AT THIS TIME. ON ROOM AIR. NO SOB NOTED. SENIOR SOURCING MANAGER IN PLACE READING SR, HR 7Os. IV ACCESS LAC 20G, SL PATENT AND INTACT. ALL SAFETY PRECAUTIONS IN PLACE: BED LOCKED AND IN LOWEST POSITION, SIDE RAILS UP X3, CALL LIGHT AND TABLE WITHIN REACH. WILL CONTINUE PLAN OF CARE.
[2024-07-19 07:33] LABS: CALCIUM, SERUM 9.4 mg/dL (8.5-10.1); MAGNESIUM 1.8 mg/dL (1.8-2.4); PHOSPHORUS 3.2 mg/dL (2.5-4.9); POTASSIUM 4.3 mmol/L (3.5-5.1)
[2024-07-19 08:00] VITALS: BP 132/87; TEMP 97.9; O2SAT 97
--- NOTE | 2024-07-19 11:49 | NUR ---
RN NOTES 1200 BS 441, METAL TEMPERER BRIAN NOTIFIED, 10 UNITS INSULIN ADMINISTERED PER SLIDING SCALE, NO NEW ORDER AT THIS TIME.
[2024-07-19] MEDS ORDERED: CEPH-570 PO (12:19)
--- NOTE | 2024-07-19 13:00 | NUR ---
RN NOTES PT DISCHARGE TO [facility]. REPORT GIVEN TO VELVET KELSEY, DIRECTOR OF EARLY CHILDHOOD TIME [id number]
--- NOTE | 2024-07-19 14:01 | NUR ---
RN NOTES PT DISCHARGED TO [facility] BY AMBULANCE VIA GURNEY. PT STABLE, VITAL SIGN STABLE. IV LINE REMOVED
== END 2024-07-19 13:57 | DRG 603 ==
LOC: ER 11:39 → TELE1 16:08 → MEDSG1 07-19 10:56
PROVIDERS: ADMIT Student in an Organized Health Care Education/Training Program; ATTEND Student in an Organized Health Care Education/Training Program
DX: L03.115 Cellulitis of right lower limb (principal); E11.51 Type 2 diabetes mellitus with diabetic peripheral angiopathy without gangrene; E11.40 Type 2 diabetes mellitus with diabetic neuropathy, unspecified; E03.9 Hypothyroidism, unspecified; I25.10 Atherosclerotic heart disease of native coronary artery without angina pectoris; Z86.718 Personal history of other venous thrombosis and embolism; I10 Essential (primary) hypertension; G89.29 Other chronic pain; E78.5 Hyperlipidemia, unspecified; R53.1 Weakness; F32.A Depression, unspecified; D64.9 Anemia, unspecified; F41.9 Anxiety disorder, unspecified; M81.0 Age-related osteoporosis without current pathological fracture; Z79.899 Other long term (current) drug therapy; Z79.4 Long term (current) use of insulin; Z79.02 Long term (current) use of antithrombotics/antiplatelets; F17.200 Nicotine dependence, unspecified, uncomplicated; Z88.5 Allergy status to narcotic agent; Z79.890 Hormone replacement therapy; M19.90 Unspecified osteoarthritis, unspecified site; Z98.62 Peripheral vascular angioplasty status
CPT/HCPCS: 36415; 80048-TC; 82550-TC; 82962-TC; 83735-TC; 84100-TC; 84443-TC; 85025-TC; 93970-TC; 97530-TC; A4223; G0378; J1650; J1815; J3371; J7050; J7060